=== PATIENT | female | born 1965 | race American Indian/Alaskan Native ===

== ENCOUNTER 2020-05-19 16:16 | Inpatient (IN) | payer MEDICARE, MEDICAID ==
[2020-05-19] MEDS ORDERED: Sodium Chloride 0.9% 2.5 ML Syringe FLUSH PRN (16:33)
[2020-05-19] MEDS ORDERED: Sodium Chloride 0.9% 10 ML Syringe FLUSH PRN (16:33)
--- NOTE | 2020-05-19 16:37 | EDM.PDOC ---
ED HPI GENERAL MEDICAL PROBLEM - General Chief Complaint: Lower Extremity Injury/Pain Stated Complaint: PAIN IN LEGS Time Seen by Provider: 05/19/20 16:20 Source of Information: Reports: Patient - History of Present Illness INITIAL COMMENTS - FREE TEXT/NARRATIVE: History of present illness: 54-year-old female presenting with left calf pain since this morning. Has had some chronic swelling in the right lower extremity ever after a surgery for a fractured bone. However having some pain and swelling in the left lower extremity and pain with any weightbearing or movement of the leg and dorsiflexion and plantar flexion cause worsening of pain as well. Apparently she called [facility] and they told her they did not have an ultrasound and told her to come here instead. She was concerned she might have a blood clot. She does have a kitten and she has multiple superficial cuts all over both legs but none of them appear infected. She has not had any difficulty breathing or chest pain. She has not had blood clot in the past. Review of systems: As per history of present illness and below otherwise all systems reviewed and negative. Past medical history: As per history of present illness and as reviewed below otherwise noncontributory. CHF, hypertension, diabetes Surgical history: As per history of present illness and as reviewed below otherwise noncontributory. Tubal ligation, tonsillectomy, gastric bypass, toe amputation on the right, right lower extremity fracture repair Social history: No reported history of drug or alcohol abuse. Former smoker now quit Family history: As per history of present illness and as reviewed below otherwise noncontributory. Physical exam: GEN: no acute distress, chronically ill appearing HEENT: Atraumatic, normocephalic, mucous membranes slightly dry Neck: supple, nontender, trachea midline. Lungs: No respiratory distress. Heart: RRR Abdomen: Soft, nondistended, nontender. Back: nontender Extremities: Left calf tenderness, appears slightly enlarged compared to right although patient reports usually the right side is larger due to chronic swelling from remote surgery and injury. Distally neurovascularly intact. Right foot with healing ulcer with dark scab/eschar without significant surrounding erythema. Left foot has early ulcer formation with surrounding erythema concern for acute infection Neuro: Awake, alert, oriented. Neuro Exam nonfocal. Skin: warm, dry, no lesions ulceration, erythema surrounding infected diabetic foot ulcers 1 on right and 1 on left Diagnostics: Labs, left lower extremity ultrasound Therapeutics: [] MDM: Impression: [] Plan: [] Definitive disposition and diagnosis as appropriate pending reevaluation and review of above. left knee to left ankle Pain Score (Numeric/FACES): 6 - Related Data Allergies Allergy/AdvReac Type Severity Reaction Status Date / Time Penicillins Allergy Airway Verified 05/19/20 22:22 Tightness Home Meds: Home Meds Albuterol [Ventolin HFA] 1 - 2 puff INH ASDIRECTED PRN 10/02/15 [History] Cyclobenzaprine [Flexeril] 1 tab PO BEDTIME 10/02/15 [History] Furosemide 60 mg PO DAILY 10/02/15 [History] Gabapentin [Neurontin] 600 mg PO BID 10/02/15 [History] Lisinopril 40 mg PO DAILY 10/02/15 [History] Omeprazole [Prilosec] 40 mg PO BID 10/02/15 [History] Potassium Chloride 2 tab PO TID 10/02/15 [History] amLODIPine Besylate [Amlodipine Besylate] 10 mg PO ACBREAKFAST 10/02/15 [History] buPROPion HCL [Wellbutrin Xl] 1 tab PO BID 10/02/15 [History] rOPINIRole HCl [Requip] 0.5 mg PO BEDTIME 10/02/15 [History] traMADol HCl [Tramadol HCl] 2 tab PO Q8H PRN 10/02/15 [History] Cholecalciferol (Vitamin D3) [Vitamin D3] 50,000 unit PO ASDIRECTED 05/06/17 [History] Fluticasone Propionate [Flovent Hfa] 1 puff INH BID 05/06/17 [History] Metoprolol Succinate 12.5 mg PO BID 05/06/17 [History] atorvaSTATin Calcium [Atorvastatin Calcium] 20 mg PO DAILY 05/06/17 [History] Past Medical History Other HEENT History: wears glasses, has upper and lower dentures Cardiovascular History: Reports: Heart Failure, High Cholesterol, Hypertension Other Cardiovascular History: History CHF '2007, PVD sec to diabetes Respiratory History: Reports: Asthma, COPD Other Respiratory History: 30+ year history of smoking, History reaction to environmental allergies triggering asthma Gastrointestinal History: Reports: GERD Other Gastrointestinal History: Heartburn/GERD reports currently managed with medication Other Genitourinary History: renal insufficiency Musculoskeletal History: Reports: Arthritis, Back Pain, Chronic, Fracture, Fibromyalgia Other Musculoskeletal History: HX: fracturing Left wrist and right tibia Neurological History: Reports: Neuropathy, Peripheral, Other (See Below) Other Neuro History: hx of restless leg syndrome, hx of left leg sciatica Psychiatric History: Reports: Depression Endocrine/Metabolic History: Reports: Diabetes, Type II, Obesity/BMI 30+ Dermatologic History: Reports: Cellulitis Other Dermatologic History: Right Foot - Infectious Disease History Infectious Disease History: Reports: None - Past Surgical History HEENT Surgical History: Reports: Tonsillectomy Female Surgical History: Reports: Breast Biopsy, Tubal Ligation Musculoskeletal Surgical History: Reports: Other (See Below) Other Musculoskeletal Surgeries/Procedures:: amputation of right great toe 10/23 Social & Family History - Family History Family Medical History: Noncontributory - Caffeine Use Caffeine Use: Reports: Coffee, Soda Review of Systems - Review of Systems Review Of Systems: See Below (See HPI) ED EXAM, GENERAL - Physical Exam Exam: See Below (See HPI) Course - Vital Signs Last Recorded V/S: Last Vital Signs Temp 99.8 F 05/20/20 16:00 Pulse 73 05/20/20 16:00 Resp 15 05/20/20 16:00 BP 152/80 H 05/20/20 16:00 Pulse Ox 99 05/20/20 16:00 - Orders/Labs/Meds Orders: Medication Orders Acetaminophen (Tylenol) 650 mg PO Q4H PRN PRN Reason: Pain (Mild 1-3)/fever Heparin Sodium (Porcine) (Heparin Sodium) 5,000 units SUBCUT Q12H [facility] Last Admin: 05/20/20 11:33 Dose: 5,000 units Documented by: Admin: 05/19/20 23:02 Dose: 5,000 units Documented by: DARA Sodium Chloride (Normal Saline) 1,000 mls @ 75 mls/hr IV ASDIRECTED [facility] Last Admin: 05/19/20 22:56 Dose: 125 mls/hr Documented by: DARA Cefepime HCl 1 gm/ Premix 50 mls @ 100 mls/hr IV Q12H [facility] Last Admin: 05/20/20 11:35 Dose: 100 mls/hr Documented by: PROFLUC Insulin Aspart (Novolog) 0 unit SUBCUT TIDAC [facility]; Protocol Last Admin: 05/20/20 18:33 Dose: Not Given Documented by: PROFLUC Oxycodone HCl (Oxycodone) 5 mg PO Q4H PRN PRN Reason: Pain (moderate 4-6) Last Admin: 05/20/20 19:14 Dose: 5 mg Documented by: Admin: 05/19/20 22:57 Dose: 5 mg Documented by: DARA Sodium Chloride (Saline Flush) 10 ml FLUSH ASDIRECTED PRN PRN Reason: Keep Vein Open Last Admin: 05/19/20 16:48 Dose: 10 ml Documented by: RAJENDRA Sodium Chloride (Saline Flush) 2.5 ml FLUSH ASDIRECTED PRN PRN Reason: Keep Vein Open Last Admin: 05/19/20 16:48 Dose: 2.5 ml Documented by: RAJENDRA Vancomycin HCl (Pharmacy To Dose - Vancomycin) 1 dose .XX ASDIRECTED [facility] Labs: Laboratory Tests 05/19/20 05/19/20 05/19/20 Range/Units 16:46 16:46 16:46 WBC 16.87 H (4.0-11.0) K/uL RBC 3.69 L (4.30-5.90) M/uL Hgb 11.2 L (12.0-16.0) g/dL Hct 34.0 L (36.0-46.0) % MCV 92.1 (80.0-98.0) fL MCH 30.4 (27.0-32.0) pg MCHC 32.9 (31.0-37.0) g/dL RDW Std Deviation 39.3 (28.0-62.0) fl RDW Coeff of Lorraine 12 (11.0-15.0) % Plt Count 162 (150-400) K/uL MPV 9.60 (7.40-12.00) fL Neut % (Auto) 86.4 H (48.0-80.0) % Lymph % (Auto) 5.5 L (16.0-40.0) % George % (Auto) 6.2 (0.0-15.0) % Eos % (Auto) 1.7 (0.0-7.0) % Baso % (Auto) 0.2 (0.0-1.5) % Neut # (Auto) 14.6 H (1.4-5.7) K/uL Lymph # (Auto) 0.9 (0.6-2.4) K/uL George # (Auto) 1.1 H (0.0-0.8) K/uL Eos # (Auto) 0.3 (0.0-0.7) K/uL Baso # (Auto) 0.0 (0.0-0.1) K/uL INR 1.07 Sodium 137 (136-145) mmol/L Potassium 4.4 (3.5-5.1) mmol/L Chloride 102 (98-107) mmol/L Carbon Dioxide 25.1 (21.0-32.0) mmol/L BUN 36 H (7.0-18.0) mg/dL Creatinine 3.2 H (0.6-1.0) mg/dL Est Cr Clr Drug Dosing 19.32 mL/min Estimated GFR (MDRD) 15.0 ml/min Glucose 113 H (74-106) mg/dL Calcium 7.9 L (8.5-10.1) mg/dL Total Bilirubin 0.4 (0.2-1.0) mg/dL AST 17 (15-37) IU/L ALT 23 (14-63) IU/L Alkaline Phosphatase 153 H (46-116) U/L B-Natriuretic Peptide (<100) PG/ML Total Protein 7.7 (6.4-8.2) g/dL Albumin 3.2 L (3.4-5.0) g/dL Globulin 4.5 H (2.6-4.0) g/dL Albumin/Globulin Ratio 0.7 L (0.9-1.6) 05/19/20 Range/Units 16:46 WBC (4.0-11.0) K/uL RBC (4.30-5.90) M/uL Hgb (12.0-16.0) g/dL Hct (36.0-46.0) % MCV (80.0-98.0) fL MCH (27.0-32.0) pg MCHC (31.0-37.0) g/dL RDW Std Deviation (28.0-62.0) fl RDW Coeff of Lorraine (11.0-15.0) % Plt Count (150-400) K/uL MPV (7.40-12.00) fL Neut % (Auto) (48.0-80.0) % Lymph % (Auto) (16.0-40.0) % George % (Auto) (0.0-15.0) % Eos % (Auto) (0.0-7.0) % Baso % (Auto) (0.0-1.5) % Neut # (Auto) (1.4-5.7) K/uL Lymph # (Auto) (0.6-2.4) K/uL George # (Auto) (0.0-0.8) K/uL Eos # (Auto) (0.0-0.7) K/uL Baso # (Auto) (0.0-0.1) K/uL INR Sodium (136-145) mmol/L Potassium (3.5-5.1) mmol/L Chloride (98-107) mmol/L Carbon Dioxide (21.0-32.0) mmol/L BUN (7.0-18.0) mg/dL Creatinine (0.6-1.0) mg/dL Est Cr Clr Drug Dosing mL/min Estimated GFR (MDRD) ml/min Glucose (74-106) mg/dL Calcium (8.5-10.1) mg/dL Total Bilirubin (0.2-1.0) mg/dL AST (15-37) IU/L ALT (14-63) IU/L Alkaline Phosphatase (46-116) U/L B-Natriuretic Peptide 751 H (<100) PG/ML Total Protein (6.4-8.2) g/dL Albumin (3.4-5.0) g/dL Globulin (2.6-4.0) g/dL Albumin/Globulin Ratio (0.9-1.6) Meds: Medications Generic Name Dose Route Start Last Admin Trade Name Freq PRN Reason Stop Dose Admin Acetaminophen 650 mg 05/19/20 22:29 Tylenol PO Q4H PRN Pain (Mild 1-3)/fever Heparin Sodium (Porcine) 5,000 units 05/19/20 23:00 05/20/20 11:33 Heparin Sodium SUBCUT 5,000 units Q12H [facility] Administration Sodium Chloride 1,000 mls @ 75 mls/hr 05/19/20 22:45 05/19/20 22:56 Normal Saline IV 125 mls/hr ASDIRECTED [facility] Administration Cefepime HCl 1 gm/ Premix 50 mls @ 100 mls/hr 05/20/20 11:30 05/20/20 11:35 IV 100 mls/hr Q12H [facility] Administration Insulin Aspart 0 unit 05/20/20 17:00 05/20/20 18:33 Novolog SUBCUT Not Given TIDAC [facility] Protocol Oxycodone HCl 5 mg 05/19/20 22:29 05/20/20 19:14 Oxycodone PO 5 mg Q4H PRN Administration Pain (moderate 4-6) Sodium Chloride 10 ml 05/19/20 16:33 05/19/20 16:48 Saline Flush FLUSH 10 ml ASDIRECTED PRN Administration Keep Vein Open Sodium Chloride 2.5 ml 05/19/20 16:33 05/19/20 16:48 Saline Flush FLUSH 2.5 ml ASDIRECTED PRN Administration Keep Vein Open Vancomycin HCl 1 dose 05/19/20 22:30 Pharmacy To Dose - Vancomycin .XX ASDIRECTED [facility] Discontinued Medications Generic Name Dose Route Start Last Admin Trade Name Freq PRN Reason Stop Dose Admin Cephalexin 1,000 mg 05/19/20 19:34 05/19/20 20:04 Keflex PO 05/19/20 19:35 Not Given ONETIME ONE Piperacillin Sod/Tazobactam 50 mls @ 100 mls/hr 05/19/20 19:43 05/20/20 02:16 Sod 3.375 gm/ Sodium Chloride IV 05/19/20 20:12 Not Given ONETIME ONE Vancomycin HCl 1 gm/ Sodium 250 mls @ 166 mls/hr 05/19/20 19:43 05/19/20 20:04 Chloride IV 05/19/20 21:13 166 mls/hr ONETIME ONE Administration Cefepime HCl 2 gm/ Premix 50 mls @ 100 mls/hr 05/19/20 19:48 05/20/20 02:14 IV 05/19/20 20:17 Not Given ONETIME ONE Cefepime HCl 1 gm/ Premix 50 mls @ 100 mls/hr 05/20/20 04:00 IV Q8H [facility] Vancomycin HCl Confirm 05/19/20 19:50 05/19/20 22:49 Vancocin Administered 05/19/20 19:51 Not Given Dose 1 gm .ROUTE .[facility] ONE - Re-Assessments/Exams Free Text/Narrative Re-Assessment/Exam: 05/19/20 19:40 I reassessed the patient. She is resting comfortably and in no acute distress. I discussed the abnormal lab findings and ultrasound findings with the patient. No DVT seen, however the patient does have a creatinine of 3.2 with no prior creatinine available for comparison and a white blood cell count of 16 as well as an inguinal lymph node in the left groin. I discussed all the above with the patient. She does report she thinks she has an infection in her right foot for which she has been seeing the manager placement, on examination this appears to have a crusted eschar over the hallux amputation site and is nontender without any surrounding erythema or drainage. We discussed the left leg swelling and lymph node and she reports she was wondering if she may be developing an infection in her left foot as well. On examination she does have some erythema in the development of a superficial ulcer of the left foot and erythema over the plantar and medial surfaces of the foot. She reports she has no sensation in the feet due to her neuropathy. She has not had any fevers. She was previously told that she had some renal insufficiency but she is not sure what stage or what her baseline creatinine is. Therefore I recommended to the patient that she get admitted. She is in agreement with this. Departure - Departure Time of Disposition: 19:55 Disposition: Admitted As Inpatient 65 Clinical Impression: Diabetic foot infection, Acute renal insufficiency - Discharge Information Sepsis Event Note (ED) - Evaluation Sepsis Screening Result: No Definite Risk
[2020-05-19 17:17] LABS: CARBON DIOXIDE,CO2 25.1 mmol/L (21.0-32.0); POTASSIUM,K 4.4 mmol/L (3.5-5.1)
--- NOTE | 2020-05-19 18:11 | US ---
INDICATION: Left calf pain TECHNIQUE: Ultrasound venous duplex left lower extremity. Mallory-scale, color Doppler, and spectral Doppler imaging were performed with compression and augmentation. COMPARISON: None FINDINGS: Deep veins: The left common femoral, femoral, popliteal, and visualized calf veins are fully compressible, demonstrate normal color flow, and normal response to mechanical augmentation. The Duplex Doppler waveforms are normal in appearance. Superficial veins: The visualized greater saphenous and superficial veins of the leg and calf are unremarkable. Soft tissue: No masses or cysts are identified. Several lymph nodes are present in the left inguinal region measuring up to 1 cm in maximal short axis. IMPRESSIONS: 1. No sonographic evidence of acute deep venous thrombosis seen. 2. Left inguinal adenopathy is noted and clinical follow-up is advised. Dictated by Anish Whittaker MD @ 05/19/2020 6:09:33 PM Dictated by: Anish Whittaker MD @ 05/19/2020 18:09:40 (Electronically Signed)
[2020-05-19] MEDS ORDERED: Cephalexin 500 MG Cap PO ONE (19:34)
[2020-05-19] MEDS ORDERED: Piperacillin/Tazobactam 3.375 GM in Sodium Chloride 0.9% 50 ML IV ONE (19:43)
[2020-05-19] MEDS ORDERED: Cefepime 2 GM in Premix Bag 1 BAG IV ONE (19:48)
[2020-05-19] MEDS: Vancomycin 1 GM AdvVial ONE ×2 (20:04→22:49)
--- NOTE | 2020-05-19 21:58 | CR ---
INDICATION: Osteomyelitis TECHNIQUE: Three views left foot. FINDINGS: Small sensory navicular bone. Tiny lucency involving the distal tuft of the left great toe. No definitive cortical destruction or erosion in the left foot to definitively suggest osteomyelitis. Apparent soft tissue swelling involving the left 2nd through 4th toes. If concern for osteomyelitis persists consider correlation with MRI of the foot which is the most sensitive test. Small amount of lucency along the base of the left 1st distal phalanx and involving the base of the left 4th proximal phalanx nonspecific. Mild calcaneal spurring. Remainder negative. Dictated by Jarrod Roberts MD @ May 19 2020 9:55PM Signed by Dr. Jarrod Roberts @ May 19 2020 9:55PM
--- NOTE | 2020-05-19 22:37 | PCM.HP.2 ---
H&P History of Present Illness - General Date of Service: 05/19/20 Admit Problem/Dx: Admission Diagnosis/Problem Admission Diagnosis/Problem Diabetic foot - History of Present Illness Initial Comments - Free Text/Narative: 54 yo female with pmh of DM, HTN, diabetic nephropathy and right big toe amputation who presents with one day history of erythema and pain of the left foot. Patient was seen in the ED and had ultrasound of leg was negative for DVT. Since weight loss surgery last year patient has not required insulin. left knee to left ankle Pain Score (Numeric/FACES): 6 - Related Data Allergies/Adverse Reactions: Allergies Allergy/AdvReac Type Severity Reaction Status Date / Time Penicillins Allergy Airway Verified 05/19/20 22:22 Tightness Home Medications: Home Meds Albuterol [Ventolin HFA] 1 - 2 puff INH ASDIRECTED PRN 10/02/15 [History] Cyclobenzaprine [Flexeril] 1 tab PO BEDTIME 10/02/15 [History] Furosemide 60 mg PO DAILY 10/02/15 [History] Gabapentin [Neurontin] 600 mg PO BID 10/02/15 [History] Lisinopril 40 mg PO DAILY 10/02/15 [History] Omeprazole [Prilosec] 40 mg PO BID 10/02/15 [History] Potassium Chloride 2 tab PO TID 10/02/15 [History] amLODIPine Besylate [Amlodipine Besylate] 10 mg PO ACBREAKFAST 10/02/15 [History] buPROPion HCL [Wellbutrin Xl] 1 tab PO BID 10/02/15 [History] rOPINIRole HCl [Requip] 0.5 mg PO BEDTIME 10/02/15 [History] traMADol HCl [Tramadol HCl] 2 tab PO Q8H PRN 10/02/15 [History] Cholecalciferol (Vitamin D3) [Vitamin D3] 50,000 unit PO ASDIRECTED 05/06/17 [History] Fluticasone Propionate [Flovent Hfa] 1 puff INH BID 05/06/17 [History] Metoprolol Succinate 12.5 mg PO BID 05/06/17 [History] atorvaSTATin Calcium [Atorvastatin Calcium] 20 mg PO DAILY 05/06/17 [History] Past Medical History Other HEENT History: wears glasses, has upper and lower dentures Cardiovascular History: Reports: Heart Failure, High Cholesterol, Hypertension Other Cardiovascular History: History CHF '2007, PVD sec to diabetes Respiratory History: Reports: Asthma, COPD Other Respiratory History: 30+ year history of smoking, History reaction to environmental allergies triggering asthma Gastrointestinal History: Reports: GERD Other Gastrointestinal History: Heartburn/GERD reports currently managed with medication Other Genitourinary History: renal insufficiency Musculoskeletal History: Reports: Arthritis, Back Pain, Chronic, Fracture, Fibromyalgia Other Musculoskeletal History: HX: fracturing Left wrist and right tibia Neurological History: Reports: Neuropathy, Peripheral, Other (See Below) Other Neuro History: hx of restless leg syndrome, hx of left leg sciatica Psychiatric History: Reports: Depression Endocrine/Metabolic History: Reports: Diabetes, Type II, Obesity/BMI 30+ Dermatologic History: Reports: Cellulitis Other Dermatologic History: Right Foot - Infectious Disease History Infectious Disease History: Reports: None - Past Surgical History HEENT Surgical History: Reports: Tonsillectomy Female Surgical History: Reports: Breast Biopsy, Tubal Ligation Musculoskeletal Surgical History: Reports: Other (See Below) Other Musculoskeletal Surgeries/Procedures:: amputation of right great toe 10/23 Social & Family History - Family History Family Medical History: Noncontributory - Tobacco Use Smoking Status *Q: Former Smoker Years of Tobacco use: 35 Packs/Tins Daily: 1 Used Tobacco, but Quit: Yes Month/Year Tobacco Last Used: 10/08/2016 Second Hand Smoke Exposure: Yes - Caffeine Use Caffeine Use: Reports: Coffee, Energy Drinks, Soda, Tea - Recreational Drug Use Recreational Drug Use: No H&P Review of Systems - Review of Systems: Review Of Systems: Comprehensive ROS is negative, except as noted in HPI. Exam - Exam Exam: See Below - Vital Signs Vital Signs: Last Vital Signs Temp 35.8 C L 05/19/20 16:28 Pulse 71 05/19/20 16:28 Resp 16 05/19/20 16:28 BP 145/51 H 05/19/20 16:28 Pulse Ox 98 05/19/20 16:28 Weight: 90.129 kg - Exam General: Alert, Oriented HEENT: Mucosa Moist & [place] Lungs: Clear to Auscultation, Normal Respiratory Effort Cardiovascular: Regular Rate, Regular Rhythm GI/Abdominal Exam: Normal Bowel Sounds, Soft, Non-Tender Extremities: Non-Tender, No Pedal Edema, Other (erythema and mild swelling of the left toes extending half way up anterio foot, no ulcer noted) Skin: Warm, Dry, Intact Neurological: No: Focal Deficit - Patient Data Lab Results Last 24 hrs: Laboratory Results - last 24 hr 05/19/20 05/19/20 05/19/20 Range/Units 16:46 16:46 16:46 WBC 16.87 H (4.0-11.0) K/uL RBC 3.69 L (4.30-5.90) M/uL Hgb 11.2 L (12.0-16.0) g/dL Hct 34.0 L (36.0-46.0) % MCV 92.1 (80.0-98.0) fL MCH 30.4 (27.0-32.0) pg MCHC 32.9 (31.0-37.0) g/dL RDW Std Deviation 39.3 (28.0-62.0) fl RDW Coeff of [place]raine 12 (11.0-15.0) % Plt Count 162 (150-400) K/uL MPV 9.60 (7.40-12.00) fL Neut % (Auto) 86.4 H (48.0-80.0) % Lymph % (Auto) 5.5 L (16.0-40.0) % [place] % (Auto) 6.2 (0.0-15.0) % Eos % (Auto) 1.7 (0.0-7.0) % Baso % (Auto) 0.2 (0.0-1.5) % Neut # (Auto) 14.6 H (1.4-5.7) K/uL Lymph # (Auto) 0.9 (0.6-2.4) K/uL [place] # (Auto) 1.1 H (0.0-0.8) K/uL Eos # (Auto) 0.3 (0.0-0.7) K/uL Baso # (Auto) 0.0 (0.0-0.1) K/uL INR 1.07 Sodium 137 (136-145) mmol/L Potassium 4.4 (3.5-5.1) mmol/L Chloride 102 (98-107) mmol/L Carbon Dioxide 25.1 (21.0-32.0) mmol/L BUN 36 H (7.0-18.0) mg/dL Creatinine 3.2 H (0.6-1.0) mg/dL Est Cr Clr Drug Dosing 19.32 mL/min Estimated GFR (MDRD) 15.0 ml/min Glucose 113 H (74-106) mg/dL Calcium 7.9 L (8.5-10.1) mg/dL Total Bilirubin 0.4 (0.2-1.0) mg/dL AST 17 (15-37) IU/L ALT 23 (14-63) IU/L Alkaline Phosphatase 153 H (46-116) U/L B-Natriuretic Peptide (<100) PG/ML Total Protein 7.7 (6.4-8.2) g/dL Albumin 3.2 L (3.4-5.0) g/dL Globulin 4.5 H (2.6-4.0) g/dL Albumin/Globulin Ratio 0.7 L (0.9-1.6) SARS Virus RNA (PCR) (NEGATIVE) 05/19/20 05/19/20 Range/Units 16:46 20:00 WBC (4.0-11.0) K/uL RBC (4.30-5.90) M/uL Hgb (12.0-16.0) g/dL Hct (36.0-46.0) % MCV (80.0-98.0) fL MCH (27.0-32.0) pg MCHC (31.0-37.0) g/dL RDW Std Deviation (28.0-62.0) fl RDW Coeff of [place] (11.0-15.0) % Plt Count (150-400) K/uL MPV (7.40-12.00) fL Neut % (Auto) (48.0-80.0) % Lymph % (Auto) (16.0-40.0) % [place] % (Auto) (0.0-15.0) % Eos % (Auto) (0.0-7.0) % Baso % (Auto) (0.0-1.5) % Neut # (Auto) (1.4-5.7) K/uL Lymph # (Auto) (0.6-2.4) K/uL [place] # (Auto) (0.0-0.8) K/uL Eos # (Auto) (0.0-0.7) K/uL Baso # (Auto) (0.0-0.1) K/uL INR Sodium (136-145) mmol/L Potassium (3.5-5.1) mmol/L Chloride (98-107) mmol/L Carbon Dioxide (21.0-32.0) mmol/L BUN (7.0-18.0) mg/dL Creatinine (0.6-1.0) mg/dL Est Cr Clr Drug Dosing mL/min Estimated GFR (MDRD) ml/min Glucose (74-106) mg/dL Calcium (8.5-10.1) mg/dL Total Bilirubin (0.2-1.0) mg/dL AST (15-37) IU/L ALT (14-63) IU/L Alkaline Phosphatase (46-116) U/L B-Natriuretic Peptide 751 H (<100) PG/ML Total Protein (6.4-8.2) g/dL Albumin (3.4-5.0) g/dL Globulin (2.6-4.0) g/dL Albumin/Globulin Ratio (0.9-1.6) SARS Virus RNA (PCR) NEGATIVE (NEGATIVE) Result Diagrams: 05/23/20 05:42 05/23/20 05:42 Sepsis Event Note - Evaluation Sepsis Screening Result: No Definite Risk - Focused Exam Vital Signs: Vital Signs Temp Pulse Resp BP Pulse Ox 05/19/20 16:28 35.8 C L 71 16 145/51 H 98 Problem List Initiated/Reviewed/Updated: Yes Orders Last 24hrs: Active Orders 24 hr Category Date Time Status Patient Status [ADT] Routine ADT 05/19/20 19:56 Active Antiembolic Devices [RC] PER UNIT ROUTINE Care 05/19/20 22:30 Ordered Oxygen Therapy [RC] PRN Care 05/19/20 22:29 Ordered Up ad Danielle [RC] ASDIRECTED Care 05/19/20 22:29 Ordered VTE/DVT Education [RC] PER UNIT ROUTINE Care 05/19/20 22:29 Ordered Vital Signs [RC] Q4H Care 05/19/20 22:29 Ordered [place] [employer] Diet [DIET] Diet 05/19/20 Breakfast Ordered BASIC METABOLIC PANEL,BMP [CHEM] AM Lab 05/20/20 05:11 Ordered C-REACTIVE PROTEIN [CHEM] AM Lab 05/20/20 05:11 Ordered CBC WITH AUTO DIFF [HEME] AM Lab 05/20/20 05:11 Ordered SEDIMENTATION RATE AUTO [HEME] AM Lab 05/20/20 05:11 Ordered Acetaminophen [TylenoL] Med 05/19/20 22:29 Ordered 650 mg PO Q4H PRN Cefepime [Maxipime in D5W 1 GM/50 ML] 1 gm Med 05/20/20 04:00 Ordered Premix Bag 1 bag IV Q8H Heparin Sodium Med 05/19/20 22:45 Ordered 5,000 units SUBCUT Q12H Pharmacy to Dose - Vancomycin Med 05/19/20 22:30 Ordered 1 dose .XX ASDIRECTED Sodium Chloride 0.9% [Saline Flush] Med 05/19/20 16:33 Active 10 ml FLUSH ASDIRECTED PRN Sodium Chloride 0.9% [Saline Flush] Med 05/19/20 16:33 Active 2.5 ml FLUSH ASDIRECTED PRN oxyCODONE Med 05/19/20 22:29 Ordered 5 mg PO Q4H PRN Saline Lock Insert [OM.PC] Stat Oth 05/19/20 16:33 Ordered Sequential Compression Device [OM.PC] Per Unit Routine Oth 05/19/20 22:30 Ordered Resuscitation Status Routine Resus Stat 05/19/20 22:29 Ordered Medication Orders Acetaminophen (Tylenol) 650 mg PO Q4H PRN PRN Reason: Pain (Mild 1-3)/fever Heparin Sodium (Porcine) (Heparin Sodium) 5,000 units SUBCUT Q12H [facility] Cefepime HCl 1 gm/ Premix 50 mls @ 100 mls/hr IV Q8H [facility] Oxycodone HCl (Oxycodone) 5 mg PO Q4H PRN PRN Reason: Pain (moderate 4-6) Sodium Chloride (Saline Flush) 10 ml FLUSH ASDIRECTED PRN PRN Reason: Keep Vein Open Last Admin: 05/19/20 16:48 Dose: 10 ml Documented by: RAJENDRA Sodium Chloride (Saline Flush) 2.5 ml FLUSH ASDIRECTED PRN PRN Reason: Keep Vein Open Last Admin: 05/19/20 16:48 Dose: 2.5 ml Documented by: RAJENDRA Vancomycin HCl (Pharmacy To Dose - Vancomycin) 1 dose .XX ASDIRECTED [facility] Assessment/Plan Comment:: 54 yo female admitted for left foot cellulitis Left foot cellulitis: treat with vancomycin. Foot x-ray could not exclude osteomyelitis. Will check CRP and ESR. Cultures pending Kidney disease. Creatinine is 3.2, patient reports history of kidney disease but does not know the stage. Will continue to monitor and give IV fluids tonight. Check UA. Request records from [place].
[2020-05-19] MEDS: Sodium Chloride 0.9% 1,000 ML IV SCH (22:56)
[2020-05-19] MEDS: oxyCODONE 5 MG Tab PO PRN (22:57)
[2020-05-19] MEDS: Heparin Sodium 5,000 Units/ML Vial SUBCUT SCH (23:02)
[2020-05-20] MEDS ORDERED: Cefepime 1 GM in Premix Bag 1 BAG IV SCH (04:00)
[2020-05-20 06:48] LABS: CARBON DIOXIDE,CO2 21.3 mmol/L (21.0-32.0); POTASSIUM,K 4.2 mmol/L (3.5-5.1)
--- NOTE | 2020-05-20 11:00 | PCM.PN ---
- General Info Date of Service: 05/20/20 - Review of Systems Systems Review Comment:: reports no change in swelling and redness of foot - Patient Data Vitals - Most Recent: Last Vital Signs Temp 38.5 C H 05/20/20 07:55 Pulse 79 05/20/20 07:55 Resp 18 05/20/20 07:55 BP 144/69 H 05/20/20 07:55 Pulse Ox 95 05/20/20 07:55 Weight - Most Recent: 90.129 kg I&O - Last 24 Hours: Intake & Output 05/19/20 05/20/20 05/20/20 22:59 06:59 14:59 Intake Total 885 Output Total 300 Balance 585 Lab Results Last 24 Hours: Laboratory Results - last 24 hr 05/19/20 05/19/20 05/19/20 Range/Units 16:46 16:46 16:46 WBC 16.87 H (4.0-11.0) K/uL RBC 3.69 L (4.30-5.90) M/uL Hgb 11.2 L (12.0-16.0) g/dL Hct 34.0 L (36.0-46.0) % MCV 92.1 (80.0-98.0) fL MCH 30.4 (27.0-32.0) pg MCHC 32.9 (31.0-37.0) g/dL RDW Std Deviation 39.3 (28.0-62.0) fl RDW Coeff of [place]raine 12 (11.0-15.0) % Plt Count 162 (150-400) K/uL MPV 9.60 (7.40-12.00) fL Neut % (Auto) 86.4 H (48.0-80.0) % Lymph % (Auto) 5.5 L (16.0-40.0) % [place] % (Auto) 6.2 (0.0-15.0) % Eos % (Auto) 1.7 (0.0-7.0) % Baso % (Auto) 0.2 (0.0-1.5) % Neut # (Auto) 14.6 H (1.4-5.7) K/uL Lymph # (Auto) 0.9 (0.6-2.4) K/uL [place] # (Auto) 1.1 H (0.0-0.8) K/uL Eos # (Auto) 0.3 (0.0-0.7) K/uL Baso # (Auto) 0.0 (0.0-0.1) K/uL ESR (0-29) mm/hr INR 1.07 Sodium 137 (136-145) mmol/L Potassium 4.4 (3.5-5.1) mmol/L Chloride 102 (98-107) mmol/L Carbon Dioxide 25.1 (21.0-32.0) mmol/L BUN 36 H (7.0-18.0) mg/dL Creatinine 3.2 H (0.6-1.0) mg/dL Est Cr Clr Drug Dosing 19.32 mL/min Estimated GFR (MDRD) 15.0 ml/min Glucose 113 H (74-106) mg/dL POC Glucose (60-110) mg/dL Calcium 7.9 L (8.5-10.1) mg/dL Total Bilirubin 0.4 (0.2-1.0) mg/dL AST 17 (15-37) IU/L ALT 23 (14-63) IU/L Alkaline Phosphatase 153 H (46-116) U/L C-Reactive Protein (0.00-0.90) mg/dL B-Natriuretic Peptide (<100) PG/ML Total Protein 7.7 (6.4-8.2) g/dL Albumin 3.2 L (3.4-5.0) g/dL Globulin 4.5 H (2.6-4.0) g/dL Albumin/Globulin Ratio 0.7 L (0.9-1.6) Urine Color Urine Appearance Urine pH (5.0-8.0) Ur Specific [place] (1.001-1.035) Urine Protein (NEGATIVE) mg/dL Urine Glucose (UA) (NEGATIVE) mg/dL Urine Ketones (NEGATIVE) mg/dL Urine Occult Blood (NEGATIVE) Urine Nitrite (NEGATIVE) Urine Bilirubin (NEGATIVE) Urine Urobilinogen (<2.0) EU/dL Ur Leukocyte Esterase (NEGATIVE) Urine RBC (0-2/HPF) Urine WBC (0-5/HPF) Ur Epithelial Cells (NONE-FEW) Urine Bacteria (NEGATIVE) Ur Random Creatinine mg/dL SARS Virus RNA (PCR) (NEGATIVE) 05/19/20 05/19/20 05/19/20 Range/Units 16:46 20:00 23:00 WBC (4.0-11.0) K/uL RBC (4.30-5.90) M/uL Hgb (12.0-16.0) g/dL Hct (36.0-46.0) % MCV (80.0-98.0) fL MCH (27.0-32.0) pg MCHC (31.0-37.0) g/dL RDW Std Deviation (28.0-62.0) fl RDW Coeff of [place]raine (11.0-15.0) % Plt Count (150-400) K/uL MPV (7.40-12.00) fL Neut % (Auto) (48.0-80.0) % Lymph % (Auto) (16.0-40.0) % [place] % (Auto) (0.0-15.0) % Eos % (Auto) (0.0-7.0) % Baso % (Auto) (0.0-1.5) % Neut # (Auto) (1.4-5.7) K/uL Lymph # (Auto) (0.6-2.4) K/uL [place] # (Auto) (0.0-0.8) K/uL Eos # (Auto) (0.0-0.7) K/uL Baso # (Auto) (0.0-0.1) K/uL ESR (0-29) mm/hr INR Sodium (136-145) mmol/L Potassium (3.5-5.1) mmol/L Chloride (98-107) mmol/L Carbon Dioxide (21.0-32.0) mmol/L BUN (7.0-18.0) mg/dL Creatinine (0.6-1.0) mg/dL Est Cr Clr Drug Dosing mL/min Estimated GFR (MDRD) ml/min Glucose (74-106) mg/dL POC Glucose (60-110) mg/dL Calcium (8.5-10.1) mg/dL Total Bilirubin (0.2-1.0) mg/dL AST (15-37) IU/L ALT (14-63) IU/L Alkaline Phosphatase (46-116) U/L C-Reactive Protein (0.00-0.90) mg/dL B-Natriuretic Peptide 751 H (<100) PG/ML Total Protein (6.4-8.2) g/dL Albumin (3.4-5.0) g/dL Globulin (2.6-4.0) g/dL Albumin/Globulin Ratio (0.9-1.6) Urine Color YELLOW Urine Appearance CLEAR Urine pH 6.0 (5.0-8.0) Ur Specific [place] 1.020 (1.001-1.035) Urine Protein 100 H (NEGATIVE) mg/dL Urine Glucose (UA) NEGATIVE (NEGATIVE) mg/dL Urine Ketones NEGATIVE (NEGATIVE) mg/dL Urine Occult Blood SMALL H (NEGATIVE) Urine Nitrite NEGATIVE (NEGATIVE) Urine Bilirubin NEGATIVE (NEGATIVE) Urine Urobilinogen 0.2 (<2.0) EU/dL Ur Leukocyte Esterase NEGATIVE (NEGATIVE) Urine RBC 0-2 (0-2/HPF) Urine WBC 0-1 (0-5/HPF) Ur Epithelial Cells RARE (NONE-FEW) Urine Bacteria RARE (NEGATIVE) Ur Random Creatinine mg/dL SARS Virus RNA (PCR) NEGATIVE (NEGATIVE) 05/19/20 05/20/20 05/20/20 Range/Units 23:00 05:58 05:58 WBC 15.32 H (4.0-11.0) K/uL RBC 3.06 L (4.30-5.90) M/uL Hgb 9.3 L (12.0-16.0) g/dL Hct 28.3 L (36.0-46.0) % MCV 92.5 (80.0-98.0) fL MCH 30.4 (27.0-32.0) pg MCHC 32.9 (31.0-37.0) g/dL RDW Std Deviation 38.3 (28.0-62.0) fl RDW Coeff of [place]raine 12 (11.0-15.0) % Plt Count 140 L (150-400) K/uL MPV 9.90 (7.40-12.00) fL Neut % (Auto) 75.1 (48.0-80.0) % Lymph % (Auto) 13.5 L (16.0-40.0) % [place] % (Auto) 9.4 (0.0-15.0) % Eos % (Auto) 1.6 (0.0-7.0) % Baso % (Auto) 0.4 (0.0-1.5) % Neut # (Auto) 11.5 H (1.4-5.7) K/uL Lymph # (Auto) 2.1 (0.6-2.4) K/uL [place] # (Auto) 1.4 H (0.0-0.8) K/uL Eos # (Auto) 0.3 (0.0-0.7) K/uL Baso # (Auto) 0.1 (0.0-0.1) K/uL ESR 55 H (0-29) mm/hr INR Sodium (136-145) mmol/L Potassium (3.5-5.1) mmol/L Chloride (98-107) mmol/L Carbon Dioxide (21.0-32.0) mmol/L BUN (7.0-18.0) mg/dL Creatinine (0.6-1.0) mg/dL Est Cr Clr Drug Dosing mL/min Estimated GFR (MDRD) ml/min Glucose (74-106) mg/dL POC Glucose (60-110) mg/dL Calcium (8.5-10.1) mg/dL Total Bilirubin (0.2-1.0) mg/dL AST (15-37) IU/L ALT (14-63) IU/L Alkaline Phosphatase (46-116) U/L C-Reactive Protein (0.00-0.90) mg/dL B-Natriuretic Peptide (<100) PG/ML Total Protein (6.4-8.2) g/dL Albumin (3.4-5.0) g/dL Globulin (2.6-4.0) g/dL Albumin/Globulin Ratio (0.9-1.6) Urine Color Urine Appearance Urine pH (5.0-8.0) Ur Specific [place] (1.001-1.035) Urine Protein (NEGATIVE) mg/dL Urine Glucose (UA) (NEGATIVE) mg/dL Urine Ketones (NEGATIVE) mg/dL Urine Occult Blood (NEGATIVE) Urine Nitrite (NEGATIVE) Urine Bilirubin (NEGATIVE) Urine Urobilinogen (<2.0) EU/dL Ur Leukocyte Esterase (NEGATIVE) Urine RBC (0-2/HPF) Urine WBC (0-5/HPF) Ur Epithelial Cells (NONE-FEW) Urine Bacteria (NEGATIVE) Ur Random Creatinine 45.4 mg/dL SARS Virus RNA (PCR) (NEGATIVE) 05/20/20 05/20/20 Range/Units 05:58 06:45 WBC (4.0-11.0) K/uL RBC (4.30-5.90) M/uL Hgb (12.0-16.0) g/dL Hct (36.0-46.0) % MCV (80.0-98.0) fL MCH (27.0-32.0) pg MCHC (31.0-37.0) g/dL RDW Std Deviation (28.0-62.0) fl RDW Coeff of [place] (11.0-15.0) % Plt Count (150-400) K/uL MPV (7.40-12.00) fL Neut % (Auto) (48.0-80.0) % Lymph % (Auto) (16.0-40.0) % [place] % (Auto) (0.0-15.0) % Eos % (Auto) (0.0-7.0) % Baso % (Auto) (0.0-1.5) % Neut # (Auto) (1.4-5.7) K/uL Lymph # (Auto) (0.6-2.4) K/uL [place] # (Auto) (0.0-0.8) K/uL Eos # (Auto) (0.0-0.7) K/uL Baso # (Auto) (0.0-0.1) K/uL ESR (0-29) mm/hr INR Sodium 138 (136-145) mmol/L Potassium 4.2 (3.5-5.1) mmol/L Chloride 106 (98-107) mmol/L Carbon Dioxide 21.3 (21.0-32.0) mmol/L BUN 37 H (7.0-18.0) mg/dL Creatinine 3.3 H (0.6-1.0) mg/dL Est Cr Clr Drug Dosing 20.13 mL/min Estimated GFR (MDRD) 14.5 ml/min Glucose 70 L (74-106) mg/dL POC Glucose 66 (60-110) mg/dL Calcium 7.5 L (8.5-10.1) mg/dL Total Bilirubin (0.2-1.0) mg/dL AST (15-37) IU/L ALT (14-63) IU/L Alkaline Phosphatase (46-116) U/L C-Reactive Protein 19.40 H (0.00-0.90) mg/dL B-Natriuretic Peptide (<100) PG/ML Total Protein (6.4-8.2) g/dL Albumin (3.4-5.0) g/dL Globulin (2.6-4.0) g/dL Albumin/Globulin Ratio (0.9-1.6) Urine Color Urine Appearance Urine pH (5.0-8.0) Ur Specific [place] (1.001-1.035) Urine Protein (NEGATIVE) mg/dL Urine Glucose (UA) (NEGATIVE) mg/dL Urine Ketones (NEGATIVE) mg/dL Urine Occult Blood (NEGATIVE) Urine Nitrite (NEGATIVE) Urine Bilirubin (NEGATIVE) Urine Urobilinogen (<2.0) EU/dL Ur Leukocyte Esterase (NEGATIVE) Urine RBC (0-2/HPF) Urine WBC (0-5/HPF) Ur Epithelial Cells (NONE-FEW) Urine Bacteria (NEGATIVE) Ur Random Creatinine mg/dL SARS Virus RNA (PCR) (NEGATIVE) Med Orders - Current: Current Medications Acetaminophen (Tylenol) 650 mg PO Q4H PRN PRN Reason: Pain (Mild 1-3)/fever Heparin Sodium (Porcine) (Heparin Sodium) 5,000 units SUBCUT Q12H [facility] Last Admin: 05/19/20 23:02 Dose: 5,000 units Documented by: Sodium Chloride (Normal Saline) 1,000 mls @ 75 mls/hr IV ASDIRECTED [facility] Last Admin: 05/19/20 22:56 Dose: 125 mls/hr Documented by: Cefepime HCl 1 gm/ Premix 50 mls @ 100 mls/hr IV Q8H [facility] Oxycodone HCl (Oxycodone) 5 mg PO Q4H PRN PRN Reason: Pain (moderate 4-6) Last Admin: 05/19/20 22:57 Dose: 5 mg Documented by: Sodium Chloride (Saline Flush) 10 ml FLUSH ASDIRECTED PRN PRN Reason: Keep Vein Open Last Admin: 05/19/20 16:48 Dose: 10 ml Documented by: Sodium Chloride (Saline Flush) 2.5 ml FLUSH ASDIRECTED PRN PRN Reason: Keep Vein Open Last Admin: 05/19/20 16:48 Dose: 2.5 ml Documented by: Vancomycin HCl (Pharmacy To Dose - Vancomycin) 1 dose .XX ASDIRECTED [facility] Discontinued Medications Cephalexin (Keflex) 1,000 mg PO ONETIME ONE Stop: 05/19/20 19:35 Last Admin: 05/19/20 20:04 Dose: Not Given Documented by: Piperacillin Sod/Tazobactam (Sod 3.375 gm/ Sodium Chloride) 50 mls @ 100 mls/hr IV ONETIME ONE Stop: 05/19/20 20:12 Last Admin: 05/20/20 02:16 Dose: Not Given Documented by: Vancomycin HCl 1 gm/ Sodium (Chloride) 250 mls @ 166 mls/hr IV ONETIME ONE Stop: 05/19/20 21:13 Last Admin: 05/19/20 20:04 Dose: 166 mls/hr Documented by: Cefepime HCl 2 gm/ Premix 50 mls @ 100 mls/hr IV ONETIME ONE Stop: 05/19/20 20:17 Last Admin: 05/20/20 02:14 Dose: Not Given Documented by: Cefepime HCl 1 gm/ Premix 50 mls @ 100 mls/hr IV Q8H [facility] Vancomycin HCl (Vancocin) Confirm Administered Dose 1 gm .ROUTE .STK-MED ONE Stop: 05/19/20 19:51 Last Admin: 05/19/20 22:49 Dose: Not Given Documented by: - Exam General: Alert, Moderate Distress Neck: Supple Lungs: Clear to Auscultation, Normal Respiratory Effort Cardiovascular: Regular Rate, Regular Rhythm GI/Abdominal Exam: Soft, Non-Tender, No Distention Extremities: Non-Tender, No Pedal Edema Skin: Rash (minimal change in erythema of right foot) Sepsis Event Note - Evaluation Sepsis Screening Result: No Definite Risk - Focused Exam Vital Signs: Vital Signs Temp Pulse Resp BP Pulse Ox 05/20/20 07:55 38.5 C H 79 18 144/69 H 95 05/20/20 04:00 38.0 C 79 18 148/68 H 95 05/20/20 00:00 37.7 C 75 18 148/70 H 99 - Problem List Review Problem List Initiated/Reviewed/Updated: Yes - My Orders Last 24 Hours: My Active Orders 05/19/20 22:29 Oxygen Therapy [RC] PRN Up ad Danielle [RC] ASDIRECTED VTE/DVT Education [RC] DAILY Vital Signs [RC] Q4H Acetaminophen [TylenoL] 650 mg PO Q4H PRN oxyCODONE 5 mg PO Q4H PRN Resuscitation Status Routine 05/19/20 22:30 Antiembolic Devices [RC] PER UNIT ROUTINE Pharmacy to Dose - Vancomycin 1 dose .XX ASDIRECTED Sequential Compression Device [OM.PC] Per Unit Routine 05/19/20 22:33 Obtain Past Medical Record [OM.PC] Routine 05/19/20 22:34 Bladder Scan [RC] ASDIRECTED 05/19/20 22:37 Accu Check [Blood Glucose Check, Bedside] [RC] TIDAC 05/19/20 22:45 Sodium Chloride 0.9% [Normal Saline] 1,000 ml IV ASDIRECTED 05/19/20 23:00 Heparin Sodium 5,000 units SUBCUT Q12H 05/20/20 10:54 Foot wo Cont Lt [CT] Routine 05/20/20 11:00 Cefepime [Maxipime in D5W 1 GM/50 ML] 1 gm Premix Bag 1 bag IV Q8H 05/21/20 05:11 BASIC METABOLIC PANEL,BMP [CHEM] AM CBC WITH AUTO DIFF [HEME] AM - Plan Plan:: 54 yo female admitted for left foot cellulitis Left foot cellulitis: treating with vancomycin. Will add cefepime Foot x-ray could not exclude osteomyelitis. MRI of foot ordered Kidney disease. Creatinine is 3.3, Baseline creatinine is 2.4, will continue appropriate hydration.
[2020-05-20] MEDS: Heparin Sodium 5,000 Units/ML Vial SUBCUT SCH ×2 (11:33→22:57)
[2020-05-20] MEDS: Cefepime 1 GM in Premix Bag 1 BAG IV SCH ×2 (11:35→23:00)
--- NOTE | 2020-05-20 12:10 | CT ---
CT LEFT FOOT WITHOUT CONTRAST, 05/20/2020 CLINCIAL HISTORY: Cellulitis. TECHNIQUE: Noncontrast axial images with sagittal and coronal reconstructions. COMPARISON: Radiographs from 05/19/2020. FINDINGS: Diffuse nonspecific soft tissue swelling. No soft tissue gas is identified. No appreciable mayank bony destruction/osteolysis to suggest osteomyelitis. Mild first MTP and midfoot DJD. IMPRESSION: 1. Diffuse nonspecific soft tissue swelling. 2. No appreciable soft tissue gas. 3. No CT evidence of osteomyelitis. If there is additional clinical concern or high clinical suspicion for osteomyelitis, consider MRI. Please note that all CT scans at this facility use dose modulation, iterative reconstruction and/or weight-based dosing when appropriate to reduce radiation dose to as low as reasonably achievable. Addi Young M.D. Body/Diagnostic Radiologist [email or web address] Transcribed: 12:50 pm DW/Dictated by: Addi Young MD @ 05/20/2020 12:47:00 PM (Electronically Signed)
[2020-05-20] MEDS: Insulin Aspart 100 Units/ML 3 ML Pen SUBCUT SCH (18:33)
[2020-05-20] MEDS: oxyCODONE 5 MG Tab PO PRN (19:14)
[2020-05-20] MEDS ORDERED: Albuterol HFA 18 Gm Inhaler INH PRN (19:41)
[2020-05-20] MEDS ORDERED: Lisinopril 10 MG Tab PO SCH ×2 (20:00→21:00)
[2020-05-20] MEDS: Cyclobenzaprine 10 MG Tab PO SCH (20:42)
[2020-05-20] MEDS: Metoprolol Succinate 25 MG Tab.ER PO SCH (20:43)
[2020-05-20] MEDS: Gabapentin 300 MG Cap PO SCH (20:43)
[2020-05-20] MEDS: rOPINIRole 0.5 MG Tab PO SCH (20:45)
[2020-05-20] MEDS: buPROPion 150 MG Tab.ER PO SCH (20:45)
[2020-05-20] MEDS: Acetaminophen 325 MG Tab PO PRN (20:55)
[2020-05-20] MEDS ORDERED: Omeprazole 20 MG Cap.CR PO SCH (21:00)
[2020-05-20] MEDS: Fluticasone Propionate 44 MCG/Puff 10.6 GM Inhaler INH SCH (22:52)
[2020-05-21] MEDS: Sodium Chloride 0.9% 1,000 ML IV SCH ×2 (02:56→20:47)
[2020-05-21] MEDS: oxyCODONE 5 MG Tab PO PRN ×4 (03:49→20:17)
[2020-05-21 06:10] LABS: CARBON DIOXIDE,CO2 22.8 mmol/L (21.0-32.0); POTASSIUM,K 4.3 mmol/L (3.5-5.1)
[2020-05-21] MEDS: Insulin Aspart 100 Units/ML 3 ML Pen SUBCUT SCH ×3 (06:30→18:44)
[2020-05-21] MEDS: amLODIPine 5 MG Tab PO SCH (06:48)
[2020-05-21] MEDS: Potassium Chloride 10 MEQ Tab.ER PO SCH ×3 (08:13→17:08)
[2020-05-21] MEDS: Omeprazole 20 MG Cap.CR PO SCH ×2 (08:13→17:07)
[2020-05-21] MEDS: Metoprolol Succinate 25 MG Tab.ER PO SCH ×2 (08:14→20:43)
[2020-05-21] MEDS: buPROPion 150 MG Tab.ER PO SCH ×2 (08:14→20:45)
[2020-05-21] MEDS: Gabapentin 300 MG Cap PO SCH ×2 (08:14→20:44)
[2020-05-21] MEDS: Furosemide 20 MG Tab PO SCH (08:15)
[2020-05-21] MEDS: Fluticasone Propionate 44 MCG/Puff 10.6 GM Inhaler INH SCH ×2 (08:19→20:46)
[2020-05-21] MEDS ORDERED: Azithromycin 250 MG Tab PO ONE (09:19)
[2020-05-21 10:02] LABS: HEMOGLOBIN A1C 6.1 % (4.5-6.2)
[2020-05-21] MEDS: Heparin Sodium 5,000 Units/ML Vial SUBCUT SCH ×2 (10:06→23:18)
[2020-05-21] MEDS: Cefepime 1 GM in Premix Bag 1 BAG IV SCH ×2 (11:36→23:15)
--- NOTE | 2020-05-21 11:37 | PCM.PN ---
- General Info Date of Service: 05/21/20 Subjective Update: Patient states that she is having foot pain this morning, 02/14 but that her foot is less swollen and red. - Review of Systems General: Denies: Fever, Chills HEENT: Denies: Headaches Pulmonary: Denies: Shortness of Breath, Pleuritic Chest Pain, Cough Cardiovascular: Denies: Chest Pain, Palpitations, Dyspnea on Exertion Gastrointestinal: Denies: Abdominal Pain, Diarrhea, Nausea Musculoskeletal: Reports: Foot Pain - Patient Data Vitals - Most Recent: Last Vital Signs Temp 97.9 F 05/21/20 08:00 Pulse 74 05/21/20 08:14 Resp 18 05/21/20 08:00 BP 164/84 H 05/21/20 08:14 Pulse Ox 94 L 05/21/20 08:00 Weight - Most Recent: 198 lb 11.2 oz I&O - Last 24 Hours: Intake & Output 05/20/20 05/21/20 05/21/20 22:59 06:59 14:59 Intake Total 600 600 Output Total 1220 1700 Balance -620 -1100 Lab Results Last 24 Hours: Laboratory Results - last 24 hr 05/20/20 05/20/20 05/20/20 Range/Units 11:30 16:33 19:25 WBC (4.0-11.0) K/uL RBC (4.30-5.90) M/uL Hgb (12.0-16.0) g/dL Hct (36.0-46.0) % MCV (80.0-98.0) fL MCH (27.0-32.0) pg MCHC (31.0-37.0) g/dL RDW Std Deviation (28.0-62.0) fl RDW Coeff of [place]raine (11.0-15.0) % Plt Count (150-400) K/uL MPV (7.40-12.00) fL Neut % (Auto) (48.0-80.0) % Lymph % (Auto) (16.0-40.0) % [place] % (Auto) (0.0-15.0) % Eos % (Auto) (0.0-7.0) % Baso % (Auto) (0.0-1.5) % Neut # (Auto) (1.4-5.7) K/uL Lymph # (Auto) (0.6-2.4) K/uL [place] # (Auto) (0.0-0.8) K/uL Eos # (Auto) (0.0-0.7) K/uL Baso # (Auto) (0.0-0.1) K/uL Sodium (136-145) mmol/L Potassium (3.5-5.1) mmol/L Chloride (98-107) mmol/L Carbon Dioxide (21.0-32.0) mmol/L BUN (7.0-18.0) mg/dL Creatinine (0.6-1.0) mg/dL Est Cr Clr Drug Dosing mL/min Estimated GFR (MDRD) ml/min Glucose (74-106) mg/dL POC Glucose 208 H 69 (60-110) mg/dL Hemoglobin A1c (4.5-6.2) % Calcium (8.5-10.1) mg/dL Vancomycin Trough 8.0 (5.0-10.0) ug/mL 05/21/20 05/21/20 05/21/20 Range/Units 05:10 05:10 05:10 WBC 11.97 H (4.0-11.0) K/uL RBC 3.07 L (4.30-5.90) M/uL Hgb 9.4 L (12.0-16.0) g/dL Hct 28.5 L (36.0-46.0) % MCV 92.8 (80.0-98.0) fL MCH 30.6 (27.0-32.0) pg MCHC 33.0 (31.0-37.0) g/dL RDW Std Deviation 38.7 (28.0-62.0) fl RDW Coeff of [place]raine 12 (11.0-15.0) % Plt Count 148 L (150-400) K/uL MPV 9.90 (7.40-12.00) fL Neut % (Auto) 71.6 (48.0-80.0) % Lymph % (Auto) 16.0 (16.0-40.0) % [place] % (Auto) 6.9 (0.0-15.0) % Eos % (Auto) 5.3 (0.0-7.0) % Baso % (Auto) 0.2 (0.0-1.5) % Neut # (Auto) 8.6 H (1.4-5.7) K/uL Lymph # (Auto) 1.9 (0.6-2.4) K/uL [place] # (Auto) 0.8 (0.0-0.8) K/uL Eos # (Auto) 0.6 (0.0-0.7) K/uL Baso # (Auto) 0.0 (0.0-0.1) K/uL Sodium 140 (136-145) mmol/L Potassium 4.3 (3.5-5.1) mmol/L Chloride 108 H (98-107) mmol/L Carbon Dioxide 22.8 (21.0-32.0) mmol/L BUN 39 H (7.0-18.0) mg/dL Creatinine 3.0 H (0.6-1.0) mg/dL Est Cr Clr Drug Dosing 22.14 mL/min Estimated GFR (MDRD) 16.2 ml/min Glucose 72 L (74-106) mg/dL POC Glucose (60-110) mg/dL Hemoglobin A1c 6.1 (4.5-6.2) % Calcium 7.8 L (8.5-10.1) mg/dL Vancomycin Trough (5.0-10.0) ug/mL 05/21/20 Range/Units 06:13 WBC (4.0-11.0) K/uL RBC (4.30-5.90) M/uL Hgb (12.0-16.0) g/dL Hct (36.0-46.0) % MCV (80.0-98.0) fL MCH (27.0-32.0) pg MCHC (31.0-37.0) g/dL RDW Std Deviation (28.0-62.0) fl RDW Coeff of [place]raine (11.0-15.0) % Plt Count (150-400) K/uL MPV (7.40-12.00) fL Neut % (Auto) (48.0-80.0) % Lymph % (Auto) (16.0-40.0) % [place] % (Auto) (0.0-15.0) % Eos % (Auto) (0.0-7.0) % Baso % (Auto) (0.0-1.5) % Neut # (Auto) (1.4-5.7) K/uL Lymph # (Auto) (0.6-2.4) K/uL [place] # (Auto) (0.0-0.8) K/uL Eos # (Auto) (0.0-0.7) K/uL Baso # (Auto) (0.0-0.1) K/uL Sodium (136-145) mmol/L Potassium (3.5-5.1) mmol/L Chloride (98-107) mmol/L Carbon Dioxide (21.0-32.0) mmol/L BUN (7.0-18.0) mg/dL Creatinine (0.6-1.0) mg/dL Est Cr Clr Drug Dosing mL/min Estimated GFR (MDRD) ml/min Glucose (74-106) mg/dL POC Glucose 71 (60-110) mg/dL Hemoglobin A1c (4.5-6.2) % Calcium (8.5-10.1) mg/dL Vancomycin Trough (5.0-10.0) ug/mL Med Orders - Current: Current Medications Acetaminophen (Tylenol) 650 mg PO Q4H PRN PRN Reason: Pain (Mild 1-3)/fever Last Admin: 05/20/20 20:55 Dose: 650 mg Documented by: Albuterol (Ventolin Hfa) 0 gm INH ASDIRECTED PRN PRN Reason: Shortness of Breath Amlodipine Besylate (Norvasc) 10 mg PO ACBREAKFAST [facility] Last Admin: 05/21/20 06:48 Dose: 10 mg Documented by: Azithromycin (Zithromax) 250 mg PO Q24H [facility] Bupropion HCl (Wellbutrin Xl) 150 mg PO BID [facility] Last Admin: 05/21/20 08:14 Dose: 150 mg Documented by: Cyclobenzaprine HCl (Flexeril) 10 mg PO BEDTIME [facility] Last Admin: 05/20/20 20:42 Dose: 10 mg Documented by: Fluticasone Propionate (Flovent Hfa 44 Mcg) 0 gm INH BID [facility] Last Admin: 05/21/20 08:19 Dose: 1 puff Documented by: Furosemide (Lasix) 60 mg PO DAILY [facility] Last Admin: 05/21/20 08:15 Dose: 60 mg Documented by: Gabapentin (Neurontin) 600 mg PO BID [facility] Last Admin: 05/21/20 08:14 Dose: 600 mg Documented by: Heparin Sodium (Porcine) (Heparin Sodium) 5,000 units SUBCUT Q12H [facility] Last Admin: 05/21/20 10:06 Dose: 5,000 units Documented by: Sodium Chloride (Normal Saline) 1,000 mls @ 75 mls/hr IV ASDIRECTED [facility] Last Infusion: 05/21/20 07:37 Dose: 75 mls/hr Documented by: Cefepime HCl 1 gm/ Premix 50 mls @ 100 mls/hr IV Q12H [facility] Last Admin: 05/20/20 23:00 Dose: 100 mls/hr Documented by: Vancomycin HCl 1.25 gm/ Sodium (Chloride) 250 mls @ 166.667 mls/hr IV Q24H [facility] Insulin Aspart (Novolog) 0 unit SUBCUT TIDAC [facility]; Protocol Last Admin: 05/21/20 06:30 Dose: Not Given Documented by: Metoprolol Succinate (Toprol Xl) 12.5 mg PO BID [facility] Last Admin: 05/21/20 08:14 Dose: 12.5 mg Documented by: Omeprazole (Omeprazole) 40 mg PO BIDAC [facility] Last Admin: 05/21/20 08:13 Dose: 40 mg Documented by: Oxycodone HCl (Oxycodone) 5 mg PO Q4H PRN PRN Reason: Pain (moderate 4-6) Last Admin: 05/21/20 08:38 Dose: 5 mg Documented by: Potassium Chloride (Klor-Con 10) 20 meq PO TIDMEALS [facility] Last Admin: 05/21/20 08:13 Dose: 20 meq Documented by: Ropinirole HCl (Requip) 0.5 mg PO BEDTIME [facility] Last Admin: 05/20/20 20:45 Dose: 0.5 mg Documented by: Sodium Chloride (Saline Flush) 10 ml FLUSH ASDIRECTED PRN PRN Reason: Keep Vein Open Last Admin: 05/19/20 16:48 Dose: 10 ml Documented by: Sodium Chloride (Saline Flush) 2.5 ml FLUSH ASDIRECTED PRN PRN Reason: Keep Vein Open Last Admin: 05/19/20 16:48 Dose: 2.5 ml Documented by: Vancomycin HCl (Pharmacy To Dose - Vancomycin) 1 dose .XX ASDIRECTED [facility] Discontinued Medications Azithromycin (Zithromax) 500 mg PO Q24H ONE Stop: 05/21/20 09:20 Last Admin: 05/21/20 10:00 Dose: 500 mg Documented by: Cephalexin (Keflex) 1,000 mg PO ONETIME ONE Stop: 05/19/20 19:35 Last Admin: 05/19/20 20:04 Dose: Not Given Documented by: Piperacillin Sod/Tazobactam (Sod 3.375 gm/ Sodium Chloride) 50 mls @ 100 mls/hr IV ONETIME ONE Stop: 05/19/20 20:12 Last Admin: 05/20/20 02:16 Dose: Not Given Documented by: Vancomycin HCl 1 gm/ Sodium (Chloride) 250 mls @ 166 mls/hr IV ONETIME ONE Stop: 05/19/20 21:13 Last Admin: 05/19/20 20:04 Dose: 166 mls/hr Documented by: Cefepime HCl 2 gm/ Premix 50 mls @ 100 mls/hr IV ONETIME ONE Stop: 05/19/20 20:17 Last Admin: 05/20/20 02:14 Dose: Not Given Documented by: Cefepime HCl 1 gm/ Premix 50 mls @ 100 mls/hr IV Q8H [facility] Vancomycin HCl 1 gm/ Sodium (Chloride) 250 mls @ 166 mls/hr IV ONETIME ONE Stop: 05/20/20 22:30 Last Admin: 05/20/20 20:47 Dose: 166 mls/hr Documented by: Lisinopril (Prinivil) 40 mg PO DAILY [facility] Lisinopril (Prinivil) 40 mg PO DAILY [facility] Last Admin: 05/20/20 20:42 Dose: 40 mg Documented by: Omeprazole (Omeprazole) 40 mg PO BID [facility] Last Admin: 05/20/20 20:45 Dose: 40 mg Documented by: Vancomycin HCl (Vancocin) Confirm Administered Dose 1 gm .ROUTE .STK-MED ONE Stop: 05/19/20 19:51 Last Admin: 05/19/20 22:49 Dose: Not Given Documented by: - Exam General: Alert, Oriented Lungs: Clear to Auscultation, Normal Respiratory Effort Cardiovascular: Regular Rate, Regular Rhythm GI/Abdominal Exam: Soft, Non-Tender, No Distention Extremities: No Pedal Edema, Other (cat scratches on lower legs bilaterally) Skin: Other (cat scratches on lower legs bilaterally) Neurological: Normal Speech Sepsis Event Note - Evaluation Sepsis Screening Result: No Definite Risk - Focused Exam Vital Signs: Vital Signs Temp Pulse Pulse Resp BP BP Pulse Ox 05/21/20 08:14 74 164/84 H 05/21/20 08:00 97.9 F 74 18 164/84 H 94 L 05/21/20 06:48 149/74 H 05/21/20 04:00 97.9 F 70 18 149/74 H 96 - Problem List Review Problem List Initiated/Reviewed/Updated: Yes - My Orders Last 24 Hours: My Active Orders 05/20/20 19:41 Albuterol [Ventolin HFA] 0 gm INH ASDIRECTED PRN 05/20/20 19:47 RT Post Treatment Assessment [RC] Click to Edit RT Pre-Treatment Assessment [RC] Click to Edit 05/20/20 21:00 Cyclobenzaprine [Flexeril] 10 mg PO BEDTIME Fluticasone Propionate [Flovent HFA 44 MCG] 0 gm INH BID Gabapentin [Neurontin] 600 mg PO BID Metoprolol Succinate [Toprol XL] 12.5 mg PO BID buPROPion [Wellbutrin XL] 150 mg PO BID rOPINIRole [Requip] 0.5 mg PO BEDTIME 05/21/20 07:30 Omeprazole 40 mg PO BIDAC amLODIPine [Norvasc] 10 mg PO ACBREAKFAST 05/21/20 08:00 Potassium Chloride [Klor-Con 10] 20 meq PO TIDMEALS 05/21/20 09:00 Furosemide [Lasix] 60 mg PO DAILY - Plan Plan:: Cellulitis (Left foot): Vancomycin and cefepime. MRI ordered, results pending. CKD Stg 4- GFR 16, Creatinine 3.0, Will monitor and provide fluids as needed. Patients kidney function has improved from the previous day.
--- NOTE | 2020-05-21 13:49 | MR ---
HISTORY: Cellulitis. TECHNIQUE: MRI left foot without contrast. COMPARISON: CT left foot 05/20/2020. FINDINGS: Severe motion artifact on several sequences. Patchy marrow edema throughout the bones of the midfoot and in the anterior calcaneus. Localized marrow edema in the talus adjacent to the sinus tarsi. Mild marrow edema in the distal 5th metatarsal. Effusion of the 5th MTP joint. No erosions. No osteomyelitis. Physiologic quantity of fluid in the tendon sheaths. Intramuscular edema. Lisfranc ligament is intact. 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 Plantar aponeurosis origin enthesophyte. Plantar aponeurosis is thickened in the hindfoot. Severe subcutaneous edema in the dorsum of the foot. IMPRESSION: 1. Motion compromised exam. 2. No osteomyelitis. 3. Patchy marrow edema in the bones of the midfoot and anterior calcaneus may be from stress reactions. No fracture. 4. Mild marrow edema in the distal 5th metatarsal may also be from stress reaction. Fifth MTP joint effusion. 5. Muscle edema due to denervation or myositis. 6. Subcutaneous edema. Dictated by Angel Dennis MD @ May 21 2020 1:47PM Signed by Dr. Angel Dennis @ May 21 2020 1:47PM
[2020-05-21] MEDS: Acetaminophen 325 MG Tab PO PRN ×2 (17:08→23:24)
[2020-05-21] MEDS: Cyclobenzaprine 10 MG Tab PO SCH (20:45)
[2020-05-21] MEDS: rOPINIRole 0.5 MG Tab PO SCH (20:45)
[2020-05-22 05:53] LABS: CARBON DIOXIDE,CO2 20.7 mmol/L (21.0-32.0); POTASSIUM,K 4.6 mmol/L (3.5-5.1)
[2020-05-22] MEDS: Omeprazole 20 MG Cap.CR PO SCH ×2 (06:32→17:11)
[2020-05-22] MEDS: oxyCODONE 5 MG Tab PO PRN ×4 (06:32→21:46)
[2020-05-22] MEDS: amLODIPine 5 MG Tab PO SCH (06:33)
[2020-05-22] MEDS: Insulin Aspart 100 Units/ML 3 ML Pen SUBCUT SCH ×3 (06:36→17:50)
[2020-05-22] MEDS: Gabapentin 300 MG Cap PO SCH ×2 (08:57→21:39)
[2020-05-22] MEDS: buPROPion 150 MG Tab.ER PO SCH ×2 (08:58→21:39)
[2020-05-22] MEDS: Azithromycin 250 MG Tab PO SCH (08:59)
[2020-05-22] MEDS: Potassium Chloride 20 MEQ Tab.ER PO SCH ×3 (08:59→17:11)
[2020-05-22] MEDS: Metoprolol Succinate 25 MG Tab.ER PO SCH ×2 (09:00→21:39)
[2020-05-22] MEDS: Furosemide 20 MG Tab PO SCH (09:01)
[2020-05-22] MEDS: Fluticasone Propionate 44 MCG/Puff 10.6 GM Inhaler INH SCH ×2 (09:01→21:50)
[2020-05-22] MEDS: Acetaminophen 325 MG Tab PO PRN (09:05)
[2020-05-22] MEDS: Heparin Sodium 5,000 Units/ML Vial SUBCUT SCH ×2 (10:47→23:48)
[2020-05-22] MEDS: Cefepime 1 GM in Premix Bag 1 BAG IV SCH ×2 (11:00→23:49)
[2020-05-22] MEDS: Sodium Chloride 0.9% 1,000 ML IV SCH (11:00)
[2020-05-22] MEDS ORDERED: Petrolatum,White Ointment 50 GM Tube TOP PRN (11:14)
--- NOTE | 2020-05-22 11:28 | PCM.PN ---
- General Info Date of Service: 05/22/20 Subjective Update: Patient states that she still has foot pain, notices that her edema is more diffuse but feels like the redness has decreased. Denies fever, chills. States that she has lots of foot dryness. - Review of Systems General: Denies: Fever, Malaise, Chills HEENT: Denies: Headaches Pulmonary: Denies: Shortness of Breath, Pleuritic Chest Pain, Cough Cardiovascular: Denies: Chest Pain, Palpitations, Dyspnea on Exertion Gastrointestinal: Denies: Abdominal Pain, Decreased Appetite, Diarrhea Musculoskeletal: Reports: Foot Pain Skin: Reports: Dryness (both feet), Rash, Other (left foot redness and swelling) Neurological: Denies: Dizziness, Headache Psychiatric: Denies: Confusion - Patient Data Vitals - Most Recent: Last Vital Signs Temp 98.2 F 05/22/20 08:00 Pulse 71 05/22/20 09:00 Resp 17 05/22/20 08:00 BP 154/73 H 05/22/20 09:00 Pulse Ox 99 05/22/20 08:00 Weight - Most Recent: 198 lb 11.2 oz I&O - Last 24 Hours: Intake & Output 05/21/20 05/22/20 05/22/20 22:59 06:59 14:59 Intake Total 1997 1100 Output Total 1999 800 Balance -2 300 Lab Results Last 24 Hours: Laboratory Results - last 24 hr 05/21/20 05/21/20 05/21/20 Range/Units 11:34 17:46 20:03 WBC (4.0-11.0) K/uL RBC (4.30-5.90) M/uL Hgb (12.0-16.0) g/dL Hct (36.0-46.0) % MCV (80.0-98.0) fL MCH (27.0-32.0) pg MCHC (31.0-37.0) g/dL RDW Std Deviation (28.0-62.0) fl RDW Coeff of Lorraine (11.0-15.0) % Plt Count (150-400) K/uL MPV (7.40-12.00) fL Neut % (Auto) (48.0-80.0) % Lymph % (Auto) (16.0-40.0) % [place] % (Auto) (0.0-15.0) % Eos % (Auto) (0.0-7.0) % Baso % (Auto) (0.0-1.5) % Neut # (Auto) (1.4-5.7) K/uL Lymph # (Auto) (0.6-2.4) K/uL [place] # (Auto) (0.0-0.8) K/uL Eos # (Auto) (0.0-0.7) K/uL Baso # (Auto) (0.0-0.1) K/uL Nucleated RBC % /100WBC Nucleated RBCs # K/uL Sodium (136-145) mmol/L Potassium (3.5-5.1) mmol/L Chloride (98-107) mmol/L Carbon Dioxide (21.0-32.0) mmol/L BUN (7.0-18.0) mg/dL Creatinine (0.6-1.0) mg/dL Est Cr Clr Drug Dosing mL/min Estimated GFR (MDRD) ml/min Glucose (74-106) mg/dL POC Glucose 113 H 127 H (60-110) mg/dL Calcium (8.5-10.1) mg/dL Random Vancomycin 15.7 ug/mL 05/22/20 05/22/20 05/22/20 Range/Units 04:58 04:58 06:35 WBC 13.06 H (4.0-11.0) K/uL RBC 2.99 L (4.30-5.90) M/uL Hgb 9.1 L (12.0-16.0) g/dL Hct 27.5 L (36.0-46.0) % MCV 92.0 (80.0-98.0) fL MCH 30.4 (27.0-32.0) pg MCHC 33.1 (31.0-37.0) g/dL RDW Std Deviation 42.3 (28.0-62.0) fl RDW Coeff of [place]raine 12 (11.0-15.0) % Plt Count 166 (150-400) K/uL MPV 9.80 (7.40-12.00) fL Neut % (Auto) 71.5 (48.0-80.0) % Lymph % (Auto) 15.0 L (16.0-40.0) % [place] % (Auto) 7.8 (0.0-15.0) % Eos % (Auto) 5.5 (0.0-7.0) % Baso % (Auto) 0.2 (0.0-1.5) % Neut # (Auto) 9.3 H (1.4-5.7) K/uL Lymph # (Auto) 2.0 (0.6-2.4) K/uL [place] # (Auto) 1.0 H (0.0-0.8) K/uL Eos # (Auto) 0.7 (0.0-0.7) K/uL Baso # (Auto) 0.0 (0.0-0.1) K/uL Nucleated RBC % 0.0 /100WBC Nucleated RBCs # 0 K/uL Sodium 141 (136-145) mmol/L Potassium 4.6 (3.5-5.1) mmol/L Chloride 107 (98-107) mmol/L Carbon Dioxide 20.7 L (21.0-32.0) mmol/L BUN 40 H (7.0-18.0) mg/dL Creatinine 2.9 H (0.6-1.0) mg/dL Est Cr Clr Drug Dosing 22.91 mL/min Estimated GFR (MDRD) 16.8 ml/min Glucose 72 L (74-106) mg/dL POC Glucose 56 L (60-110) mg/dL Calcium 8.0 L (8.5-10.1) mg/dL Random Vancomycin ug/mL 05/22/20 Range/Units 07:23 WBC (4.0-11.0) K/uL RBC (4.30-5.90) M/uL Hgb (12.0-16.0) g/dL Hct (36.0-46.0) % MCV (80.0-98.0) fL MCH (27.0-32.0) pg MCHC (31.0-37.0) g/dL RDW Std Deviation (28.0-62.0) fl RDW Coeff of Lorraine (11.0-15.0) % Plt Count (150-400) K/uL MPV (7.40-12.00) fL Neut % (Auto) (48.0-80.0) % Lymph % (Auto) (16.0-40.0) % [place] % (Auto) (0.0-15.0) % Eos % (Auto) (0.0-7.0) % Baso % (Auto) (0.0-1.5) % Neut # (Auto) (1.4-5.7) K/uL Lymph # (Auto) (0.6-2.4) K/uL [place] # (Auto) (0.0-0.8) K/uL Eos # (Auto) (0.0-0.7) K/uL Baso # (Auto) (0.0-0.1) K/uL Nucleated RBC % /100WBC Nucleated RBCs # K/uL Sodium (136-145) mmol/L Potassium (3.5-5.1) mmol/L Chloride (98-107) mmol/L Carbon Dioxide (21.0-32.0) mmol/L BUN (7.0-18.0) mg/dL Creatinine (0.6-1.0) mg/dL Est Cr Clr Drug Dosing mL/min Estimated GFR (MDRD) ml/min Glucose (74-106) mg/dL POC Glucose 150 H (60-110) mg/dL Calcium (8.5-10.1) mg/dL Random Vancomycin ug/mL Med Orders - Current: Current Medications Acetaminophen (Tylenol) 650 mg PO Q4H PRN PRN Reason: Pain (Mild 1-3)/fever Last Admin: 05/22/20 09:05 Dose: 650 mg Documented by: Albuterol (Ventolin Hfa) 0 gm INH ASDIRECTED PRN PRN Reason: Shortness of Breath Amlodipine Besylate (Norvasc) 10 mg PO ACBREAKFAST [facility] Last Admin: 05/22/20 06:33 Dose: 10 mg Documented by: Azithromycin (Zithromax) 250 mg PO Q24H [facility] Last Admin: 05/22/20 08:59 Dose: 250 mg Documented by: Bupropion HCl (Wellbutrin Xl) 150 mg PO BID [facility] Last Admin: 05/22/20 08:58 Dose: 150 mg Documented by: Cyclobenzaprine HCl (Flexeril) 10 mg PO BEDTIME [facility] Last Admin: 05/21/20 20:45 Dose: 10 mg Documented by: Fluticasone Propionate (Flovent Hfa 44 Mcg) 0 gm INH BID [facility] Last Admin: 05/22/20 09:01 Dose: 1 puff Documented by: Furosemide (Lasix) 60 mg PO DAILY [facility] Last Admin: 05/22/20 09:01 Dose: 60 mg Documented by: Gabapentin (Neurontin) 600 mg PO BID [facility] Last Admin: 05/22/20 08:57 Dose: 600 mg Documented by: Heparin Sodium (Porcine) (Heparin Sodium) 5,000 units SUBCUT Q12H [facility] Last Admin: 05/22/20 10:47 Dose: 5,000 units Documented by: Sodium Chloride (Normal Saline) 1,000 mls @ 75 mls/hr IV ASDIRECTED [facility] Last Admin: 05/22/20 11:00 Dose: 75 mls/hr Documented by: Cefepime HCl 1 gm/ Premix 50 mls @ 100 mls/hr IV Q12H [facility] Last Admin: 05/22/20 11:00 Dose: 100 mls/hr Documented by: Vancomycin HCl 1.25 gm/ Sodium (Chloride) 250 mls @ 166.667 mls/hr IV Q24H [facility] Last Admin: 05/21/20 21:40 Dose: 166.667 mls/hr Documented by: Insulin Aspart (Novolog) 0 unit SUBCUT TIDAC [facility]; Protocol Last Admin: 05/22/20 06:36 Dose: Not Given Documented by: Metoprolol Succinate (Toprol Xl) 12.5 mg PO BID [facility] Last Admin: 05/22/20 09:00 Dose: 12.5 mg Documented by: Omeprazole (Omeprazole) 40 mg PO BIDAC [facility] Last Admin: 05/22/20 06:32 Dose: 40 mg Documented by: Oxycodone HCl (Oxycodone) 5 mg PO Q4H PRN PRN Reason: Pain (moderate 4-6) Last Admin: 05/22/20 10:46 Dose: 5 mg Documented by: Petrolatum (Aquaphor With Natural Healing) 0 gm TOP ASDIRECTED PRN PRN Reason: Dryness Potassium Chloride (Klor-Con M20) 20 meq PO TIDMEALS [facility] Last Admin: 05/22/20 08:59 Dose: 20 meq Documented by: Ropinirole HCl (Requip) 0.5 mg PO BEDTIME [facility] Last Admin: 05/21/20 20:45 Dose: 0.5 mg Documented by: Sodium Chloride (Saline Flush) 10 ml FLUSH ASDIRECTED PRN PRN Reason: Keep Vein Open Last Admin: 05/19/20 16:48 Dose: 10 ml Documented by: Sodium Chloride (Saline Flush) 2.5 ml FLUSH ASDIRECTED PRN PRN Reason: Keep Vein Open Last Admin: 05/19/20 16:48 Dose: 2.5 ml Documented by: Vancomycin HCl (Pharmacy To Dose - Vancomycin) 1 dose .XX ASDIRECTED [facility] Discontinued Medications Azithromycin (Zithromax) 500 mg PO Q24H ONE Stop: 05/21/20 09:20 Last Admin: 05/21/20 10:00 Dose: 500 mg Documented by: Cephalexin (Keflex) 1,000 mg PO ONETIME ONE Stop: 05/19/20 19:35 Last Admin: 05/19/20 20:04 Dose: Not Given Documented by: Piperacillin Sod/Tazobactam (Sod 3.375 gm/ Sodium Chloride) 50 mls @ 100 mls/hr IV ONETIME ONE Stop: 05/19/20 20:12 Last Admin: 05/20/20 02:16 Dose: Not Given Documented by: Vancomycin HCl 1 gm/ Sodium (Chloride) 250 mls @ 166 mls/hr IV ONETIME ONE Stop: 05/19/20 21:13 Last Admin: 05/19/20 20:04 Dose: 166 mls/hr Documented by: Cefepime HCl 2 gm/ Premix 50 mls @ 100 mls/hr IV ONETIME ONE Stop: 05/19/20 20:17 Last Admin: 05/20/20 02:14 Dose: Not Given Documented by: Cefepime HCl 1 gm/ Premix 50 mls @ 100 mls/hr IV Q8H [facility] Vancomycin HCl 1 gm/ Sodium (Chloride) 250 mls @ 166 mls/hr IV ONETIME ONE Stop: 05/20/20 22:30 Last Admin: 05/20/20 20:47 Dose: 166 mls/hr Documented by: Lisinopril (Prinivil) 40 mg PO DAILY [facility] Lisinopril (Prinivil) 40 mg PO DAILY [facility] Last Admin: 05/20/20 20:42 Dose: 40 mg Documented by: Omeprazole (Omeprazole) 40 mg PO BID [facility] Last Admin: 05/20/20 20:45 Dose: 40 mg Documented by: Potassium Chloride (Klor-Con 10) 20 meq PO TIDMEALS [facility] Last Admin: 05/21/20 17:08 Dose: 20 meq Documented by: Vancomycin HCl (Vancocin) Confirm Administered Dose 1 gm .ROUTE .STK-MED ONE Stop: 05/19/20 19:51 Last Admin: 05/19/20 22:49 Dose: Not Given Documented by: - Exam General: Alert Lungs: Clear to Auscultation, Normal Respiratory Effort Cardiovascular: Regular Rate, Regular Rhythm GI/Abdominal Exam: Soft, Non-Tender, No Distention Extremities: No Pedal Edema, Redness (left foot), Other (patient has edema and erythema of the left foot. ). No: Leg Pain Skin: Dry Sepsis Event Note - Evaluation Sepsis Screening Result: No Definite Risk - Focused Exam Vital Signs: Vital Signs Temp Pulse Pulse Resp BP BP Pulse Ox 05/22/20 09:00 71 154/73 H 05/22/20 08:00 98.2 F 73 17 139/73 99 05/22/20 07:38 98.1 F 71 12 154/73 H 98 05/22/20 06:33 145/72 H 05/22/20 04:00 98.1 F 70 16 140/75 96 - Problem List Review Problem List Initiated/Reviewed/Updated: Yes - My Orders Last 24 Hours: My Active Orders 05/22/20 08:00 Potassium Chloride [Klor-Con M20] 20 meq PO TIDMEALS 05/22/20 11:14 Petrolatum,White [Aquaphor with Natural Healing] See Dose Instructions TOP ASDIRECTED PRN - Plan Plan:: Cellulitis (Left foot): Vancomycin, cefepime azithromycin. MRI showed no signs of osteomyelitis. Will continue abx treatment and reassess in the AM. CKD Stg 3b- GFR 22.9, Creatinine 2.9, Will monitor and provide fluids as needed. Patients kidney function has improved from the previous day.
[2020-05-22] MEDS: Cyclobenzaprine 10 MG Tab PO SCH (21:39)
[2020-05-22] MEDS: rOPINIRole 0.5 MG Tab PO SCH (21:40)
[2020-05-23] MEDS: oxyCODONE 5 MG Tab PO PRN ×5 (04:22→22:48)
[2020-05-23 06:21] LABS: POTASSIUM,K 4.9 mmol/L (3.5-5.1)
[2020-05-23] MEDS: Sodium Chloride 0.9% 1,000 ML IV SCH ×2 (07:38→21:51)
[2020-05-23] MEDS: Omeprazole 20 MG Cap.CR PO SCH ×2 (07:53→17:27)
[2020-05-23] MEDS: amLODIPine 5 MG Tab PO SCH (07:53)
[2020-05-23] MEDS: Acetaminophen 325 MG Tab PO PRN ×2 (07:54→19:57)
[2020-05-23] MEDS: Insulin Aspart 100 Units/ML 3 ML Pen SUBCUT SCH ×3 (07:55→17:07)
[2020-05-23] MEDS: Potassium Chloride 20 MEQ Tab.ER PO SCH ×3 (09:19→17:27)
[2020-05-23] MEDS: Furosemide 20 MG Tab PO SCH (09:20)
[2020-05-23] MEDS: buPROPion 150 MG Tab.ER PO SCH ×2 (09:20→21:54)
[2020-05-23] MEDS: Gabapentin 300 MG Cap PO SCH ×2 (09:20→21:54)
[2020-05-23] MEDS: Metoprolol Succinate 25 MG Tab.ER PO SCH ×2 (09:21→21:53)
[2020-05-23] MEDS: Azithromycin 250 MG Tab PO SCH (09:22)
[2020-05-23] MEDS: Fluticasone Propionate 44 MCG/Puff 10.6 GM Inhaler INH SCH ×2 (09:23→21:55)
[2020-05-23] MEDS: Cefepime 1 GM in Premix Bag 1 BAG IV SCH ×2 (11:11→23:54)
[2020-05-23] MEDS: Heparin Sodium 5,000 Units/ML Vial SUBCUT SCH ×2 (11:11→23:51)
--- NOTE | 2020-05-23 11:45 | PCM.PN ---
- General Info Date of Service: 05/23/20 Subjective Update: Patient states 6/10 pain. States that redness and swelling is similar to yesterday. Denies fever, chills, nausea. - Review of Systems General: Denies: Fever, Chills Pulmonary: Denies: Shortness of Breath, Pleuritic Chest Pain, Cough Cardiovascular: Denies: Chest Pain Gastrointestinal: Denies: Abdominal Pain, Decreased Appetite, Nausea Musculoskeletal: Reports: Foot Pain (left foot) Skin: Reports: Other (left foot redness, edema) - Patient Data Vitals - Most Recent: Last Vital Signs Temp 99.3 F 05/23/20 07:38 Pulse 78 05/23/20 09:21 Resp 18 05/23/20 07:38 BP 128/73 05/23/20 09:21 Pulse Ox 91 L 05/23/20 07:38 Weight - Most Recent: 198 lb 11.2 oz I&O - Last 24 Hours: Intake & Output 05/22/20 05/23/20 05/23/20 22:59 06:59 14:59 Intake Total 1120 1397 Output Total 1550 2400 Balance -430 -1003 Lab Results Last 24 Hours: Laboratory Results - last 24 hr 05/22/20 05/23/20 05/23/20 Range/Units 16:25 05:42 05:42 WBC 10.47 (4.0-11.0) K/uL RBC 3.02 L (4.30-5.90) M/uL Hgb 9.0 L (12.0-16.0) g/dL Hct 27.6 L (36.0-46.0) % MCV 91.4 (80.0-98.0) fL MCH 29.8 (27.0-32.0) pg MCHC 32.6 (31.0-37.0) g/dL RDW Std Deviation 41.4 (28.0-62.0) fl RDW Coeff of Lorraine 12 (11.0-15.0) % Plt Count 161 (150-400) K/uL MPV 9.30 (7.40-12.00) fL Neut % (Auto) 71.2 (48.0-80.0) % Lymph % (Auto) 16.0 (16.0-40.0) % [place] % (Auto) 6.5 (0.0-15.0) % Eos % (Auto) 6.0 (0.0-7.0) % Baso % (Auto) 0.3 (0.0-1.5) % Neut # (Auto) 7.5 H (1.4-5.7) K/uL Lymph # (Auto) 1.7 (0.6-2.4) K/uL [place] # (Auto) 0.7 (0.0-0.8) K/uL Eos # (Auto) 0.6 (0.0-0.7) K/uL Baso # (Auto) 0.0 (0.0-0.1) K/uL Nucleated RBC % 0.0 /100WBC Nucleated RBCs # 0 K/uL Sodium 138 (136-145) mmol/L Potassium 4.9 (3.5-5.1) mmol/L Chloride 107 (98-107) mmol/L Carbon Dioxide 21.0 (21.0-32.0) mmol/L BUN 42 H (7.0-18.0) mg/dL Creatinine 2.8 H (0.6-1.0) mg/dL Est Cr Clr Drug Dosing 23.72 mL/min Estimated GFR (MDRD) 17.5 ml/min Glucose 74 (74-106) mg/dL POC Glucose 91 (60-110) mg/dL Calcium 7.9 L (8.5-10.1) mg/dL 05/23/20 Range/Units 05:44 WBC (4.0-11.0) K/uL RBC (4.30-5.90) M/uL Hgb (12.0-16.0) g/dL Hct (36.0-46.0) % MCV (80.0-98.0) fL MCH (27.0-32.0) pg MCHC (31.0-37.0) g/dL RDW Std Deviation (28.0-62.0) fl RDW Coeff of Lorraine (11.0-15.0) % Plt Count (150-400) K/uL MPV (7.40-12.00) fL Neut % (Auto) (48.0-80.0) % Lymph % (Auto) (16.0-40.0) % [place] % (Auto) (0.0-15.0) % Eos % (Auto) (0.0-7.0) % Baso % (Auto) (0.0-1.5) % Neut # (Auto) (1.4-5.7) K/uL Lymph # (Auto) (0.6-2.4) K/uL [place] # (Auto) (0.0-0.8) K/uL Eos # (Auto) (0.0-0.7) K/uL Baso # (Auto) (0.0-0.1) K/uL Nucleated RBC % /100WBC Nucleated RBCs # K/uL Sodium (136-145) mmol/L Potassium (3.5-5.1) mmol/L Chloride (98-107) mmol/L Carbon Dioxide (21.0-32.0) mmol/L BUN (7.0-18.0) mg/dL Creatinine (0.6-1.0) mg/dL Est Cr Clr Drug Dosing mL/min Estimated GFR (MDRD) ml/min Glucose (74-106) mg/dL POC Glucose 69 (60-110) mg/dL Calcium (8.5-10.1) mg/dL Med Orders - Current: Current Medications Acetaminophen (Tylenol) 650 mg PO Q4H PRN PRN Reason: Pain (Mild 1-3)/fever Last Admin: 05/23/20 07:54 Dose: 650 mg Documented by: Albuterol (Ventolin Hfa) 0 gm INH ASDIRECTED PRN PRN Reason: Shortness of Breath Amlodipine Besylate (Norvasc) 10 mg PO ACBREAKFAST [facility] Last Admin: 05/23/20 07:53 Dose: 10 mg Documented by: Azithromycin (Zithromax) 250 mg PO Q24H [facility] Last Admin: 05/23/20 09:22 Dose: 250 mg Documented by: Bupropion HCl (Wellbutrin Xl) 150 mg PO BID [facility] Last Admin: 05/23/20 09:20 Dose: 150 mg Documented by: Cyclobenzaprine HCl (Flexeril) 10 mg PO BEDTIME [facility] Last Admin: 05/22/20 21:39 Dose: 10 mg Documented by: Fluticasone Propionate (Flovent Hfa 44 Mcg) 0 gm INH BID [facility] Last Admin: 05/23/20 09:23 Dose: 1 puff Documented by: Furosemide (Lasix) 60 mg PO DAILY [facility] Last Admin: 05/23/20 09:20 Dose: 60 mg Documented by: Gabapentin (Neurontin) 600 mg PO BID [facility] Last Admin: 05/23/20 09:20 Dose: 600 mg Documented by: Heparin Sodium (Porcine) (Heparin Sodium) 5,000 units SUBCUT Q12H [facility] Last Admin: 05/23/20 11:11 Dose: 5,000 units Documented by: Sodium Chloride (Normal Saline) 1,000 mls @ 75 mls/hr IV ASDIRECTED [facility] Last Admin: 05/23/20 07:38 Dose: 75 mls/hr Documented by: Cefepime HCl 1 gm/ Premix 50 mls @ 100 mls/hr IV Q12H [facility] Last Admin: 05/23/20 11:11 Dose: 100 mls/hr Documented by: Vancomycin HCl 1.25 gm/ Sodium (Chloride) 250 mls @ 166.667 mls/hr IV Q24H [facility] Last Admin: 05/22/20 21:57 Dose: 166.667 mls/hr Documented by: Insulin Aspart (Novolog) 0 unit SUBCUT TIDAC [facility]; Protocol Last Admin: 05/23/20 07:55 Dose: 1 units Documented by: Metoprolol Succinate (Toprol Xl) 12.5 mg PO BID [facility] Last Admin: 05/23/20 09:21 Dose: 12.5 mg Documented by: [facility] Admin: 05/23/20 07:53 Dose: 40 mg Documented by: Oxycodone HCl (Oxycodone) 5 mg PO Q4H PRN PRN Reason: Pain (moderate 4-6) Last Admin: 05/23/20 09:22 Dose: 5 mg Documented by: Petrolatum (Aquaphor With Natural Healing) 0 gm TOP ASDIRECTED PRN PRN Reason: Dryness Last Admin: 05/23/20 09:18 Dose: 1 applic Documented by: Potassium Chloride (Klor-Con M20) 20 meq PO TIDMEALS [facility] Last Admin: 05/23/20 09:19 Dose: 20 meq Documented by: Ropinirole HCl (Requip) 0.5 mg PO BEDTIME [facility] Last Admin: 05/22/20 21:40 Dose: 0.5 mg Documented by: Sodium Chloride (Saline Flush) 10 ml FLUSH ASDIRECTED PRN PRN Reason: Keep Vein Open Last Admin: 05/19/20 16:48 Dose: 10 ml Documented by: Sodium Chloride (Saline Flush) 2.5 ml FLUSH ASDIRECTED PRN PRN Reason: Keep Vein Open Last Admin: 05/19/20 16:48 Dose: 2.5 ml Documented by: Vancomycin HCl (Pharmacy To Dose - Vancomycin) 1 dose .XX ASDIRECTED [facility] Discontinued Medications Azithromycin (Zithromax) 500 mg PO Q24H ONE Stop: 05/21/20 09:20 Last Admin: 05/21/20 10:00 Dose: 500 mg Documented by: Cephalexin (Keflex) 1,000 mg PO ONETIME ONE Stop: 05/19/20 19:35 Last Admin: 05/19/20 20:04 Dose: Not Given Documented by: Piperacillin Sod/Tazobactam (Sod 3.375 gm/ Sodium Chloride) 50 mls @ 100 mls/hr IV ONETIME ONE Stop: 05/19/20 20:12 Last Admin: 05/20/20 02:16 Dose: Not Given Documented by: Vancomycin HCl 1 gm/ Sodium (Chloride) 250 mls @ 166 mls/hr IV ONETIME ONE Stop: 05/19/20 21:13 Last Admin: 05/19/20 20:04 Dose: 166 mls/hr Documented by: Cefepime HCl 2 gm/ Premix 50 mls @ 100 mls/hr IV ONETIME ONE Stop: 05/19/20 20:17 Last Admin: 05/20/20 02:14 Dose: Not Given Documented by: Cefepime HCl 1 gm/ Premix 50 mls @ 100 mls/hr IV Q8H [facility] Vancomycin HCl 1 gm/ Sodium (Chloride) 250 mls @ 166 mls/hr IV ONETIME ONE Stop: 05/20/20 22:30 Last Admin: 05/20/20 20:47 Dose: 166 mls/hr Documented by: Lisinopril (Prinivil) 40 mg PO DAILY [facility] Lisinopril (Prinivil) 40 mg PO DAILY [facility] Last Admin: 05/20/20 20:42 Dose: 40 mg Documented by: Omeprazole (Omeprazole) 40 mg PO BID [facility] Last Admin: 05/20/20 20:45 Dose: 40 mg Documented by: Potassium Chloride (Klor-Con 10) 20 meq PO TIDMEALS [facility] Last Admin: 05/21/20 17:08 Dose: 20 meq Documented by: Vancomycin HCl (Vancocin) Confirm Administered Dose 1 gm .ROUTE .STK-MED ONE Stop: 05/19/20 19:51 Last Admin: 05/19/20 22:49 Dose: Not Given Documented by: - Exam General: Alert, Oriented Lungs: Clear to Auscultation, Normal Respiratory Effort Cardiovascular: Regular Rate, Regular Rhythm GI/Abdominal Exam: Soft, No Distention Extremities: No Pedal Edema, Increased Warmth (left foot), Redness (left foot) Skin: Other (cellulitis left foot) Psy/Mental Status: Alert Sepsis Event Note - Evaluation Sepsis Screening Result: No Definite Risk - Focused Exam Vital Signs: Vital Signs Temp Pulse Pulse Resp BP BP Pulse Ox 05/23/20 09:21 78 128/73 05/23/20 07:53 128/73 05/23/20 07:38 99.3 F 70 18 128/73 91 L 05/23/20 04:00 98 F 66 16 133/68 96 05/23/20 00:00 97.5 F 69 16 150/66 H 97 - Problem List Review Problem List Initiated/Reviewed/Updated: Yes - My Orders Last 24 Hours: My Active Orders 05/22/20 11:14 Petrolatum,White [Aquaphor with Natural Healing] See Dose Instructions TOP ASDIRECTED PRN - Plan Plan:: Cellulitis (Left foot): Continue Vancomycin, cefepime azithromycin. MRI showed no signs of osteomyelitis. CKD Stg 3b- GFR 23, Creatinine 2.8, Will monitor and provide fluids as needed. Patients kidney function has improved from the previous day.
[2020-05-23] MEDS: Cyclobenzaprine 10 MG Tab PO SCH (21:54)
[2020-05-23] MEDS: rOPINIRole 0.5 MG Tab PO SCH (21:54)
[2020-05-24 07:21] LABS: CARBON DIOXIDE,CO2 20.7 mmol/L (21.0-32.0); POTASSIUM,K 5.5 mmol/L (3.5-5.1)
[2020-05-24] MEDS: oxyCODONE 5 MG Tab PO PRN ×4 (08:03→22:45)
[2020-05-24] MEDS: Gabapentin 300 MG Cap PO SCH ×2 (08:04→20:55)
[2020-05-24] MEDS: buPROPion 150 MG Tab.ER PO SCH ×2 (08:04→20:56)
[2020-05-24] MEDS: Omeprazole 20 MG Cap.CR PO SCH ×2 (08:05→17:32)
[2020-05-24] MEDS: Metoprolol Succinate 25 MG Tab.ER PO SCH ×2 (08:05→20:56)
[2020-05-24] MEDS: amLODIPine 5 MG Tab PO SCH (08:06)
[2020-05-24] MEDS: Furosemide 20 MG Tab PO SCH (08:09)
[2020-05-24] MEDS: Insulin Aspart 100 Units/ML 3 ML Pen SUBCUT SCH ×3 (08:11→17:36)
[2020-05-24] MEDS: Fluticasone Propionate 44 MCG/Puff 10.6 GM Inhaler INH SCH ×2 (09:52→21:30)
[2020-05-24] MEDS: Azithromycin 250 MG Tab PO SCH (09:54)
[2020-05-24] MEDS: Acetaminophen 325 MG Tab PO PRN (11:27)
[2020-05-24] MEDS: Heparin Sodium 5,000 Units/ML Vial SUBCUT SCH ×2 (11:29→22:42)
[2020-05-24] MEDS: Cefepime 1 GM in Premix Bag 1 BAG IV SCH ×2 (11:29→22:39)
--- NOTE | 2020-05-24 11:44 | US ---
Ankle brachial index Right lower extremity MARK is 1.03 and left lower extremity MARK is 0.95 Impression: 1. Borderline MARK within the left lower extremity and normal MARK within the left lower extremity. Diagnostic code #2 This report was dictated in MDT
[2020-05-24] MEDS: Sodium Chloride 0.9% 1,000 ML IV SCH (14:13)
--- NOTE | 2020-05-24 14:53 | PCM.PN ---
- General Info Date of Service: 05/24/20 Subjective Update: Patient states less foot pain. Patient feels her foot is slightly better than the previous day. Denies fever, chills, nausea. - Review of Systems General: Denies: Fever, Chills Pulmonary: Denies: Shortness of Breath, Pleuritic Chest Pain, Cough Cardiovascular: Denies: Chest Pain, Palpitations Gastrointestinal: Denies: Abdominal Pain, Diarrhea, Nausea Musculoskeletal: Reports: Foot Pain (left) Skin: Reports: Other (swelling left foot) - Patient Data Vitals - Most Recent: Last Vital Signs Temp 97.4 F 05/24/20 12:00 Pulse 67 05/24/20 12:00 Resp 16 05/24/20 12:00 BP 131/66 05/24/20 12:00 Pulse Ox 97 05/24/20 12:00 Weight - Most Recent: 198 lb 11.2 oz I&O - Last 24 Hours: Intake & Output 05/23/20 05/24/20 05/24/20 22:59 06:59 14:59 Intake Total 1858 1696 Output Total 800 2100 Balance 1058 -404 Lab Results Last 24 Hours: Laboratory Results - last 24 hr 05/23/20 05/24/20 05/24/20 Range/Units 16:13 05:57 05:57 WBC 10.08 (4.0-11.0) K/uL RBC 3.29 L (4.30-5.90) M/uL Hgb 9.8 L (12.0-16.0) g/dL Hct 30.6 L (36.0-46.0) % MCV 93.0 (80.0-98.0) fL MCH 29.8 (27.0-32.0) pg MCHC 32.0 (31.0-37.0) g/dL RDW Std Deviation 42.1 (28.0-62.0) fl RDW Coeff of [place]raine 12 (11.0-15.0) % Plt Count 175 (150-400) K/uL MPV 10.00 (7.40-12.00) fL Neut % (Auto) 70.1 (48.0-80.0) % Lymph % (Auto) 16.8 (16.0-40.0) % [place] % (Auto) 7.0 (0.0-15.0) % Eos % (Auto) 5.8 (0.0-7.0) % Baso % (Auto) 0.3 (0.0-1.5) % Neut # (Auto) 7.1 H (1.4-5.7) K/uL Lymph # (Auto) 1.7 (0.6-2.4) K/uL [place] # (Auto) 0.7 (0.0-0.8) K/uL Eos # (Auto) 0.6 (0.0-0.7) K/uL Baso # (Auto) 0.0 (0.0-0.1) K/uL Nucleated RBC % 0.0 /100WBC Nucleated RBCs # 0 K/uL Sodium 139 (136-145) mmol/L Potassium 5.5 H (3.5-5.1) mmol/L Chloride 107 (98-107) mmol/L Carbon Dioxide 20.7 L (21.0-32.0) mmol/L BUN 44 H (7.0-18.0) mg/dL Creatinine 2.8 H (0.6-1.0) mg/dL Est Cr Clr Drug Dosing 23.72 mL/min Estimated GFR (MDRD) 17.5 ml/min Glucose 71 L (74-106) mg/dL POC Glucose 101 (60-110) mg/dL Calcium 8.6 (8.5-10.1) mg/dL 05/24/20 05/24/20 Range/Units 06:33 11:49 WBC (4.0-11.0) K/uL RBC (4.30-5.90) M/uL Hgb (12.0-16.0) g/dL Hct (36.0-46.0) % MCV (80.0-98.0) fL MCH (27.0-32.0) pg MCHC (31.0-37.0) g/dL RDW Std Deviation (28.0-62.0) fl RDW Coeff of [place] (11.0-15.0) % Plt Count (150-400) K/uL MPV (7.40-12.00) fL Neut % (Auto) (48.0-80.0) % Lymph % (Auto) (16.0-40.0) % [place] % (Auto) (0.0-15.0) % Eos % (Auto) (0.0-7.0) % Baso % (Auto) (0.0-1.5) % Neut # (Auto) (1.4-5.7) K/uL Lymph # (Auto) (0.6-2.4) K/uL [place] # (Auto) (0.0-0.8) K/uL Eos # (Auto) (0.0-0.7) K/uL Baso # (Auto) (0.0-0.1) K/uL Nucleated RBC % /100WBC Nucleated RBCs # K/uL Sodium (136-145) mmol/L Potassium (3.5-5.1) mmol/L Chloride (98-107) mmol/L Carbon Dioxide (21.0-32.0) mmol/L BUN (7.0-18.0) mg/dL Creatinine (0.6-1.0) mg/dL Est Cr Clr Drug Dosing mL/min Estimated GFR (MDRD) ml/min Glucose (74-106) mg/dL POC Glucose 60 92 (60-110) mg/dL Calcium (8.5-10.1) mg/dL Med Orders - Current: Current Medications Acetaminophen (Tylenol) 650 mg PO Q4H PRN PRN Reason: Pain (Mild 1-3)/fever Last Admin: 05/24/20 11:27 Dose: 650 mg Documented by: Albuterol (Ventolin Hfa) 0 gm INH ASDIRECTED PRN PRN Reason: Shortness of Breath Amlodipine Besylate (Norvasc) 10 mg PO ACBREAKFAST [facility] Last Admin: 05/24/20 08:06 Dose: 10 mg Documented by: Azithromycin (Zithromax) 250 mg PO Q24H [facility] Last Admin: 05/24/20 09:54 Dose: 250 mg Documented by: Bupropion HCl (Wellbutrin Xl) 150 mg PO BID [facility] Last Admin: 05/24/20 08:04 Dose: 150 mg Documented by: Cyclobenzaprine HCl (Flexeril) 10 mg PO BEDTIME [facility] Last Admin: 05/23/20 21:54 Dose: 10 mg Documented by: Fluticasone Propionate (Flovent Hfa 44 Mcg) 0 gm INH BID [facility] Last Admin: 05/24/20 09:52 Dose: 1 puff Documented by: Furosemide (Lasix) 60 mg PO DAILY [facility] Last Admin: 05/24/20 08:09 Dose: 60 mg Documented by: Gabapentin (Neurontin) 600 mg PO BID [facility] Last Admin: 05/24/20 08:04 Dose: 600 mg Documented by: Heparin Sodium (Porcine) (Heparin Sodium) 5,000 units SUBCUT Q12H [facility] Last Admin: 05/24/20 11:29 Dose: 5,000 units Documented by: Sodium Chloride (Normal Saline) 1,000 mls @ 75 mls/hr IV ASDIRECTED [facility] Last Admin: 05/24/20 14:13 Dose: 75 mls/hr Documented by: Cefepime HCl 1 gm/ Premix 50 mls @ 100 mls/hr IV Q12H [facility] Last Admin: 05/24/20 11:29 Dose: 100 mls/hr Documented by: Vancomycin HCl 1.25 gm/ Sodium (Chloride) 250 mls @ 166.667 mls/hr IV Q24H [facility] Last Admin: 05/23/20 21:51 Dose: 166.667 mls/hr Documented by: Insulin Aspart (Novolog) 0 unit SUBCUT TIDAC [facility]; Protocol Last Admin: 05/24/20 12:03 Dose: Not Given Documented by: Metoprolol Succinate (Toprol Xl) 12.5 mg PO BID [facility] Last Admin: 05/24/20 08:05 Dose: 12.5 mg Documented by[facility] Admin: 05/24/20 08:05 Dose: 40 mg Documented by: Oxycodone HCl (Oxycodone) 5 mg PO Q4H PRN PRN Reason: Pain (moderate 4-6) Last Admin: 05/24/20 12:02 Dose: 5 mg Documented by: Petrolatum (Aquaphor With Natural Healing) 0 gm TOP ASDIRECTED PRN PRN Reason: Dryness Last Admin: 05/23/20 09:18 Dose: 1 applic Documented by: Ropinirole HCl (Requip) 0.5 mg PO BEDTIME [facility] Last Admin: 05/23/20 21:54 Dose: 0.5 mg Documented by: Sodium Chloride (Saline Flush) 10 ml FLUSH ASDIRECTED PRN PRN Reason: Keep Vein Open Last Admin: 05/19/20 16:48 Dose: 10 ml Documented by: Sodium Chloride (Saline Flush) 2.5 ml FLUSH ASDIRECTED PRN PRN Reason: Keep Vein Open Last Admin: 05/19/20 16:48 Dose: 2.5 ml Documented by: Vancomycin HCl (Pharmacy To Dose - Vancomycin) 1 dose .XX ASDIRECTED [facility] Discontinued Medications Azithromycin (Zithromax) 500 mg PO Q24H ONE Stop: 05/21/20 09:20 Last Admin: 05/21/20 10:00 Dose: 500 mg Documented by: Cephalexin (Keflex) 1,000 mg PO ONETIME ONE Stop: 05/19/20 19:35 Last Admin: 05/19/20 20:04 Dose: Not Given Documented by: Piperacillin Sod/Tazobactam (Sod 3.375 gm/ Sodium Chloride) 50 mls @ 100 mls/hr IV ONETIME ONE Stop: 05/19/20 20:12 Last Admin: 05/20/20 02:16 Dose: Not Given Documented by: Vancomycin HCl 1 gm/ Sodium (Chloride) 250 mls @ 166 mls/hr IV ONETIME ONE Stop: 05/19/20 21:13 Last Admin: 05/19/20 20:04 Dose: 166 mls/hr Documented by: Cefepime HCl 2 gm/ Premix 50 mls @ 100 mls/hr IV ONETIME ONE Stop: 05/19/20 20:17 Last Admin: 05/20/20 02:14 Dose: Not Given Documented by: Cefepime HCl 1 gm/ Premix 50 mls @ 100 mls/hr IV Q8H [facility] Vancomycin HCl 1 gm/ Sodium (Chloride) 250 mls @ 166 mls/hr IV ONETIME ONE Stop: 05/20/20 22:30 Last Admin: 05/20/20 20:47 Dose: 166 mls/hr Documented by: Lisinopril (Prinivil) 40 mg PO DAILY [facility] Lisinopril (Prinivil) 40 mg PO DAILY [facility] Last Admin: 05/20/20 20:42 Dose: 40 mg Documented by: Omeprazole (Omeprazole) 40 mg PO BID [facility] Last Admin: 05/20/20 20:45 Dose: 40 mg Documented by: Potassium Chloride (Klor-Con 10) 20 meq PO TIDMEALS [facility] Last Admin: 05/21/20 17:08 Dose: 20 meq Documented by: Potassium Chloride (Klor-Con M20) 20 meq PO TIDMEALS [facility] Last Admin: 05/23/20 17:27 Dose: 20 meq Documented by: Vancomycin HCl (Vancocin) Confirm Administered Dose 1 gm .ROUTE .STK-MED ONE Stop: 05/19/20 19:51 Last Admin: 05/19/20 22:49 Dose: Not Given Documented by: - Exam General: Alert, Oriented Lungs: Clear to Auscultation, Normal Respiratory Effort Cardiovascular: Regular Rate, Regular Rhythm GI/Abdominal Exam: Soft, Non-Tender, No Distention Extremities: No Pedal Edema, Increased Warmth (left foot), Redness (left foot) Sepsis Event Note - Evaluation Sepsis Screening Result: No Definite Risk - Focused Exam Vital Signs: Vital Signs Temp Pulse Pulse Resp BP BP Pulse Ox 05/24/20 12:00 97.4 F 67 16 131/66 97 05/24/20 08:06 183/87 H 05/24/20 08:05 82 183/87 H 05/24/20 08:00 98.1 F 82 16 183/87 H 95 05/24/20 04:14 96.9 F 66 16 121/67 96 - Problem List Review Problem List Initiated/Reviewed/Updated: Yes - My Orders Last 24 Hours: My Active Orders 05/25/20 05:11 BASIC METABOLIC PANEL,BMP [CHEM] AM CBC WITH AUTO DIFF [HEME] AM - Plan Plan:: Cellulitis (Left foot): Patients cellulitis is resolving gradually. Patient was seen by podiatry, who recommended we continue abx treatment. Will follow up with podiatry for recommendations. Continue Vancomycin, cefepime azithromycin. MRI showed no signs of osteomyelitis. CKD Stg 3b- Creatinine 2.8, Will monitor and provide fluids as needed. Patients kidney function has improved from the previous day.
[2020-05-24] MEDS: rOPINIRole 0.5 MG Tab PO SCH (20:56)
[2020-05-24] MEDS: Cyclobenzaprine 10 MG Tab PO SCH (20:56)
[2020-05-25] MEDS: oxyCODONE 5 MG Tab PO PRN ×3 (03:28→11:35)
[2020-05-25] MEDS: Sodium Chloride 0.9% 1,000 ML IV SCH (05:51)
[2020-05-25] MEDS: Omeprazole 20 MG Cap.CR PO SCH (06:32)
[2020-05-25] MEDS: Insulin Aspart 100 Units/ML 3 ML Pen SUBCUT SCH ×2 (06:33→11:57)
[2020-05-25 06:37] LABS: CARBON DIOXIDE,CO2 20.6 mmol/L (21.0-32.0); POTASSIUM,K 4.9 mmol/L (3.5-5.1)
[2020-05-25] MEDS: amLODIPine 5 MG Tab PO SCH (07:55)
[2020-05-25] MEDS: buPROPion 150 MG Tab.ER PO SCH (08:37)
[2020-05-25] MEDS: Gabapentin 300 MG Cap PO SCH (08:38)
[2020-05-25] MEDS: Azithromycin 250 MG Tab PO SCH (08:38)
[2020-05-25] MEDS: Furosemide 20 MG Tab PO SCH (08:38)
[2020-05-25] MEDS: Metoprolol Succinate 25 MG Tab.ER PO SCH (08:39)
[2020-05-25] MEDS: Fluticasone Propionate 44 MCG/Puff 10.6 GM Inhaler INH SCH (09:24)
[2020-05-25] MEDS: Heparin Sodium 5,000 Units/ML Vial SUBCUT SCH (11:35)
[2020-05-25] MEDS: Cefepime 1 GM in Premix Bag 1 BAG IV SCH (11:37)
[2020-05-25 11:46] VITALS: BP 139/73; PULSE 61
--- NOTE | 2020-05-25 19:01 | PCM.DCSUM1 ---
<Zac Varela - Last Filed: 05/25/20 19:02> Discharge Summary - Hospital Course Free Text/Narrative:: 54 yo female admitted for left foot cellulitis. Patient has a pmh of DM (has not required insulin due to significant weight loss post weight loss surgery), HTN, diabetic nephropathy, right big toe amputation. Patient presented to the ED with erythema, swelling and pain of the left foot. Patient did have an ultrasound of leg which was negative for DVT on admission. Patient also had an foot MRI which showed no signs of osteomyelitis. Patient did have multiple scratches on both lower extremities which she attributed to multiple cat scratches. Patient was treated with IV antibiotics (Vancomycin, cefepime azithromycin). Patient was seen by podiatry prior to discharge who recommended we continue abx treatment. Patients cellulitis was improved on discharge and patient was discharged with 5 days of doxycycline and asked to follow up with podiatry. - Discharge Data Discharge Date: 05/25/20 Discharge Disposition: Home, Self-Care 01 Condition: Good - Referral to Home Health Primary Care Physician: Dominique Butts NP - Patient Summary/Data Consults: Consultations 05/23/20 09:51 Consult to Wound Care Services [CONS] Routine - Discharge Plan *PRESCRIPTION DRUG MONITORING PROGRAM REVIEWED*: Not Applicable *COPY OF PRESCRIPTION DRUG MONITORING REPORT IN PATIENT ANN-MARIE: Not Applicable Prescriptions/Med Rec: Doxycycline Monohydrate 100 mg PO BID 5 Days #10 capsule Home Medications: Home Meds Albuterol [Ventolin HFA] 1 - 2 puff INH ASDIRECTED PRN 10/02/15 [History] Cyclobenzaprine [Flexeril] 1 tab PO BEDTIME 10/02/15 [History] Furosemide 60 mg PO DAILY 10/02/15 [History] Gabapentin [Neurontin] 600 mg PO BID 10/02/15 [History] Lisinopril 40 mg PO DAILY 10/02/15 [History] Omeprazole [Prilosec] 40 mg PO BID 10/02/15 [History] Potassium Chloride 2 tab PO TID 10/02/15 [History] amLODIPine Besylate [Amlodipine Besylate] 10 mg PO ACBREAKFAST 10/02/15 [History] buPROPion HCL [Wellbutrin Xl] 1 tab PO BID 10/02/15 [History] rOPINIRole HCl [Requip] 0.5 mg PO BEDTIME 10/02/15 [History] traMADol HCl [Tramadol HCl] 2 tab PO Q8H PRN 10/02/15 [History] Cholecalciferol (Vitamin D3) [Vitamin D3] 50,000 unit PO ASDIRECTED 05/06/17 [History] Fluticasone Propionate [Flovent Hfa] 1 puff INH BID 05/06/17 [History] Metoprolol Succinate 12.5 mg PO BID 05/06/17 [History] atorvaSTATin Calcium [Atorvastatin Calcium] 20 mg PO DAILY 05/06/17 [History] Doxycycline Monohydrate 100 mg PO BID 5 Days #10 capsule 05/25/20 [Rx] Patient Handouts: Diabetes Mellitus and Foot Care, Acetaminophen; Oxycodone capsules, Doxycycline tablets or capsules, Cellulitis, Adult, [id number] Referrals: Dominique Butts NP [Primary Care Provider] - 06/11/20 1:00 pm (Please arrive 15 minutes early with your identification, insurance cards, and your own facemask.) Parrish Xie DPM [Physician] - 06/07/20 4:00 pm - Discharge Summary/Plan Comment DC Time >30 min.: No - General Info Date of Service: 05/25/20 Subjective Update: Patient states that she is ready to go home. She still states that she has foot pain but it is improved form admission. Patient feels that her foot cellulitis has improved. Denies, fever and chills - Review of Systems General: Denies: Fever, Fatigue, Chills Pulmonary: Denies: Shortness of Breath, Pleuritic Chest Pain, Cough Cardiovascular: Denies: Chest Pain, Palpitations, Dyspnea on Exertion Gastrointestinal: Denies: Abdominal Pain, Diarrhea, Nausea Musculoskeletal: Reports: Foot Pain (mild left foot pain. Patient states she is able to bear weigh on the foot. ) Neurological: Denies: Dizziness, Headache - Patient Data Vitals - Most Recent: Last Vital Signs Temp 97.2 F 05/25/20 11:45 Pulse 61 05/25/20 11:45 Resp 16 05/25/20 11:45 BP 139/73 05/25/20 11:45 Pulse Ox 98 05/25/20 11:45 Weight - Most Recent: 90.129 kg I&O - Last 24 hours: Intake & Output 05/25/20 05/25/20 05/25/20 06:59 14:59 22:59 Intake Total 590 1325 Output Total 2800 2300 Balance -2210 -975 Lab Results - Last 24 hrs: Laboratory Results - last 24 hr 05/24/20 05/24/20 05/25/20 Range/Units 17:15 20:34 05:21 WBC 8.99 (4.0-11.0) K/uL RBC 3.02 L (4.30-5.90) M/uL Hgb 9.0 L (12.0-16.0) g/dL Hct 27.6 L (36.0-46.0) % MCV 91.4 (80.0-98.0) fL MCH 29.8 (27.0-32.0) pg MCHC 32.6 (31.0-37.0) g/dL RDW Std Deviation 42.0 (28.0-62.0) fl RDW Coeff of Lorraine 12 (11.0-15.0) % Plt Count 144 L (150-400) K/uL MPV 9.60 (7.40-12.00) fL Neut % (Auto) 68.3 (48.0-80.0) % Lymph % (Auto) 18.7 (16.0-40.0) % Stanly % (Auto) 6.8 (0.0-15.0) % Eos % (Auto) 5.8 (0.0-7.0) % Baso % (Auto) 0.4 (0.0-1.5) % Neut # (Auto) 6.1 H (1.4-5.7) K/uL Lymph # (Auto) 1.7 (0.6-2.4) K/uL Stanly # (Auto) 0.6 (0.0-0.8) K/uL Eos # (Auto) 0.5 (0.0-0.7) K/uL Baso # (Auto) 0.0 (0.0-0.1) K/uL Nucleated RBC % 0.0 /100WBC Nucleated RBCs # 0 K/uL Sodium (136-145) mmol/L Potassium (3.5-5.1) mmol/L Chloride (98-107) mmol/L Carbon Dioxide (21.0-32.0) mmol/L BUN (7.0-18.0) mg/dL Creatinine (0.6-1.0) mg/dL Est Cr Clr Drug Dosing mL/min Estimated GFR (MDRD) ml/min Glucose (74-106) mg/dL POC Glucose 75 (60-110) mg/dL Calcium (8.5-10.1) mg/dL Vancomycin Trough 35.2 H (5.0-10.0) ug/mL 05/25/20 05/25/20 05/25/20 Range/Units 05:21 06:07 11:42 WBC (4.0-11.0) K/uL RBC (4.30-5.90) M/uL Hgb (12.0-16.0) g/dL Hct (36.0-46.0) % MCV (80.0-98.0) fL MCH (27.0-32.0) pg MCHC (31.0-37.0) g/dL RDW Std Deviation (28.0-62.0) fl RDW Coeff of Lorraine (11.0-15.0) % Plt Count (150-400) K/uL MPV (7.40-12.00) fL Neut % (Auto) (48.0-80.0) % Lymph % (Auto) (16.0-40.0) % Stanly % (Auto) (0.0-15.0) % Eos % (Auto) (0.0-7.0) % Baso % (Auto) (0.0-1.5) % Neut # (Auto) (1.4-5.7) K/uL Lymph # (Auto) (0.6-2.4) K/uL Stanly # (Auto) (0.0-0.8) K/uL Eos # (Auto) (0.0-0.7) K/uL Baso # (Auto) (0.0-0.1) K/uL Nucleated RBC % /100WBC Nucleated RBCs # K/uL Sodium 139 (136-145) mmol/L Potassium 4.9 (3.5-5.1) mmol/L Chloride 108 H (98-107) mmol/L Carbon Dioxide 20.6 L (21.0-32.0) mmol/L BUN 41 H (7.0-18.0) mg/dL Creatinine 2.7 H (0.6-1.0) mg/dL Est Cr Clr Drug Dosing 24.60 mL/min Estimated GFR (MDRD) 18.3 ml/min Glucose 65 L (74-106) mg/dL POC Glucose 64 90 (60-110) mg/dL Calcium 8.2 L (8.5-10.1) mg/dL Vancomycin Trough (5.0-10.0) ug/mL Med Orders - Current: Current Medications Discontinued Medications Acetaminophen (Tylenol) 650 mg PO Q4H PRN PRN Reason: Pain (Mild 1-3)/fever Last Admin: 05/24/20 11:27 Dose: 650 mg Documented by: Albuterol (Ventolin Hfa) 0 gm INH ASDIRECTED PRN PRN Reason: Shortness of Breath Amlodipine Besylate (Norvasc) 10 mg PO ACBREAKFAST [facility] [place] Last Admin: 05/25/20 07:55 Dose: 10 mg Documented by: Azithromycin (Zithromax) 500 mg PO Q24H ONE Stop: 05/21/20 09:20 Last Admin: 05/21/20 10:00 Dose: 500 mg Documented by: Azithromycin (Zithromax) 250 mg PO Q24H [facility] [place] Last Admin: 05/25/20 08:38 Dose: 250 mg Documented by: Bupropion HCl (Wellbutrin Xl) 150 mg PO BID [facility] [place] Last Admin: 05/25/20 08:37 Dose: 150 mg Documented by: Cephalexin (Keflex) 1,000 mg PO ONETIME ONE Stop: 05/19/20 19:35 Last Admin: 05/19/20 20:04 Dose: Not Given Documented by: Cyclobenzaprine HCl (Flexeril) 10 mg PO BEDTIME [facility] [place] Last Admin: 05/24/20 20:56 Dose: 10 mg Documented by: Fluticasone Propionate (Flovent Hfa 44 Mcg) 0 gm INH BID [facility] [place] Last Admin: 05/25/20 09:24 Dose: 1 puff Documented by: Furosemide (Lasix) 60 mg PO DAILY [facility] [place] Last Admin: 05/25/20 08:38 Dose: 60 mg Documented by: Gabapentin (Neurontin) 600 mg PO BID [facility] [place] Last Admin: 05/25/20 08:38 Dose: 600 mg Documented by: Heparin Sodium (Porcine) (Heparin Sodium) 5,000 units SUBCUT Q12H [facility] [place] Last Admin: 05/25/20 11:35 Dose: 5,000 units Documented by: Piperacillin Sod/Tazobactam (Sod 3.375 gm/ Sodium Chloride) 50 mls @ 100 mls/hr IV ONETIME ONE Stop: 05/19/20 20:12 Last Admin: 05/20/20 02:16 Dose: Not Given Documented by: Vancomycin HCl 1 gm/ Sodium (Chloride) 250 mls @ 166 mls/hr IV ONETIME ONE Stop: 05/19/20 21:13 Last Admin: 05/19/20 20:04 Dose: 166 mls/hr Documented by: Cefepime HCl 2 gm/ Premix 50 mls @ 100 mls/hr IV ONETIME ONE Stop: 05/19/20 20:17 Last Admin: 05/20/20 02:14 Dose: Not Given Documented by: Cefepime HCl 1 gm/ Premix 50 mls @ 100 mls/hr IV Q8H [facility] [place] Sodium Chloride (Normal Saline) 1,000 mls @ 75 mls/hr IV ASDIRECTED [facility] [place] Last Admin: 05/25/20 05:51 Dose: 75 mls/hr Documented by: Cefepime HCl 1 gm/ Premix 50 mls @ 100 mls/hr IV Q12H [facility] [place] Last Admin: 05/25/20 11:37 Dose: 100 mls/hr Documented by: Vancomycin HCl 1 gm/ Sodium (Chloride) 250 mls @ 166 mls/hr IV ONETIME ONE Stop: 05/20/20 22:30 Last Admin: 05/20/20 20:47 Dose: 166 mls/hr Documented by: Vancomycin HCl 1.25 gm/ Sodium (Chloride) 250 mls @ 166.667 mls/hr IV Q24H [facility] [place] Last Admin: 05/24/20 22:42 Dose: Not Given Documented by: Insulin Aspart (Novolog) 0 unit SUBCUT TIDAC [facility] [place]; Protocol Last Admin: 05/25/20 11:57 Dose: Not Given Documented by: Lisinopril (Prinivil) 40 mg PO DAILY [facility] [place] Lisinopril (Prinivil) 40 mg PO DAILY [facility] [place] Last Admin: 05/20/20 20:42 Dose: 40 mg Documented by: Metoprolol Succinate (Toprol Xl) 12.5 mg PO BID [facility] [place] Last Admin: 05/25/20 08:39 Dose: 12.5 mg Documented by: Omeprazole (Omeprazole) 40 mg PO BID [facility] [place] Last Admin: 05/20/20 20:45 Dose: 40 mg Documented by: Omeprazole (Omeprazole) 40 mg PO BIDAC [facility] [place] Last Admin: 05/25/20 06:32 Dose: 40 mg Documented by: Oxycodone HCl (Oxycodone) 5 mg PO Q4H PRN PRN Reason: Pain (moderate 4-6) Last Admin: 05/25/20 11:35 Dose: 5 mg Documented by: Petrolatum (Aquaphor With Natural Healing) 0 gm TOP ASDIRECTED PRN PRN Reason: Dryness Last Admin: 05/23/20 09:18 Dose: 1 applic Documented by: Potassium Chloride (Klor-Con 10) 20 meq PO TIDMEALS [facility] [place] Last Admin: 05/21/20 17:08 Dose: 20 meq Documented by: Potassium Chloride (Klor-Con M20) 20 meq PO TIDMEALS [facility] [place] Last Admin: 05/23/20 17:27 Dose: 20 meq Documented by: Ropinirole HCl (Requip) 0.5 mg PO BEDTIME [facility] [place] Last Admin: 05/24/20 20:56 Dose: 0.5 mg Documented by: Sodium Chloride (Saline Flush) 10 ml FLUSH ASDIRECTED PRN PRN Reason: Keep Vein Open Last Admin: 05/19/20 16:48 Dose: 10 ml Documented by: Sodium Chloride (Saline Flush) 2.5 ml FLUSH ASDIRECTED PRN PRN Reason: Keep Vein Open Last Admin: 05/19/20 16:48 Dose: 2.5 ml Documented by: Vancomycin HCl (Vancocin) Confirm Administered Dose 1 gm .ROUTE .ST-MED ONE Stop: 05/19/20 19:51 Last Admin: 05/19/20 22:49 Dose: Not Given Documented by: Vancomycin HCl (Pharmacy To Dose - Vancomycin) 1 dose .XX ASDIRECTED [facility] [place] - Exam General: Reports: Alert, Oriented Lungs: Reports: Clear to Auscultation, Normal Respiratory Effort Cardiovascular: Reports: Regular Rate, Regular Rhythm GI/Abdominal Exam: Soft, Non-Tender, No Distention Extremities: No Pedal Edema, Other (mild foot pain with palpation. No pain with dorsiflexion, plantar flexion, inversion, eversion of the foot at the ankle. ) <StuartToinba - Last Filed: 05/26/20 13:42> Discharge Summary - Hospital Course Free Text/Narrative:: I have seen and evaluated the patient and agree with the residents note unless specified in my note - Referral to Home Health Primary Care Physician: Dominique Butts NP - Patient Summary/Data Consults: Consultations 05/23/20 09:51 Consult to Wound Care Services [CONS] Routine - Patient Data Vitals - Most Recent: Last Vital Signs Temp 36.2 C 05/25/20 11:45 Pulse 61 05/25/20 11:45 Resp 16 05/25/20 11:45 BP 139/73 05/25/20 11:45 Pulse Ox 98 05/25/20 11:45 Med Orders - Current: Current Medications Discontinued Medications Acetaminophen (Tylenol) 650 mg PO Q4H PRN PRN Reason: Pain (Mild 1-3)/fever Last Admin: 05/24/20 11:27 Dose: 650 mg Documented by: Albuterol (Ventolin Hfa) 0 gm INH ASDIRECTED PRN PRN Reason: Shortness of Breath Amlodipine Besylate (Norvasc) 10 mg PO ACBREAKFAST [facility] [place] Last Admin: 05/25/20 07:55 Dose: 10 mg Documented by: Azithromycin (Zithromax) 500 mg PO Q24H ONE Stop: 05/21/20 09:20 Last Admin: 05/21/20 10:00 Dose: 500 mg Documented by: Azithromycin (Zithromax) 250 mg PO Q24H [facility] [place] Last Admin: 05/25/20 08:38 Dose: 250 mg Documented by: Bupropion HCl (Wellbutrin Xl) 150 mg PO BID [facility] [place] Last Admin: 05/25/20 08:37 Dose: 150 mg Documented by: Cephalexin (Keflex) 1,000 mg PO ONETIME ONE Stop: 05/19/20 19:35 Last Admin: 05/19/20 20:04 Dose: Not Given Documented by: Cyclobenzaprine HCl (Flexeril) 10 mg PO BEDTIME [facility] [place] Last Admin: 05/24/20 20:56 Dose: 10 mg Documented by: Fluticasone Propionate (Flovent Hfa 44 Mcg) 0 gm INH BID [facility] [place] Last Admin: 09/18/20 09:24 Dose: 1 puff Documented by: Furosemide (Lasix) 60 mg PO DAILY [facility] [place] Last Admin: 05/25/20 08:38 Dose: 60 mg Documented by: Gabapentin (Neurontin) 600 mg PO BID [facility] [place] Last Admin: 05/25/20 08:38 Dose: 600 mg Documented by: Heparin Sodium (Porcine) (Heparin Sodium) 5,000 units SUBCUT Q12H [facility] [place] Last Admin: 05/25/20 11:35 Dose: 5,000 units Documented by: Piperacillin Sod/Tazobactam (Sod 3.375 gm/ Sodium Chloride) 50 mls @ 100 mls/hr IV ONETIME ONE Stop: 05/19/20 20:12 Last Admin: 05/20/20 02:16 Dose: Not Given Documented by: Vancomycin HCl 1 gm/ Sodium (Chloride) 250 mls @ 166 mls/hr IV ONETIME ONE Stop: 05/19/20 21:13 Last Admin: 05/19/20 20:04 Dose: 166 mls/hr Documented by: Cefepime HCl 2 gm/ Premix 50 mls @ 100 mls/hr IV ONETIME ONE Stop: 05/19/20 20:17 Last Admin: 05/20/20 02:14 Dose: Not Given Documented by: Cefepime HCl 1 gm/ Premix 50 mls @ 100 mls/hr IV Q8H [facility] [place] Sodium Chloride (Normal Saline) 1,000 mls @ 75 mls/hr IV ASDIRECTED [facility] [place] Last Admin: 05/25/20 05:51 Dose: 75 mls/hr Documented by: Cefepime HCl 1 gm/ Premix 50 mls @ 100 mls/hr IV Q12H [facility] [place] Last Admin: 05/25/20 11:37 Dose: 100 mls/hr Documented by: Vancomycin HCl 1 gm/ Sodium (Chloride) 250 mls @ 166 mls/hr IV ONETIME ONE Stop: 05/20/20 22:30 Last Admin: 05/20/20 20:47 Dose: 166 mls/hr Documented by: Vancomycin HCl 1.25 gm/ Sodium (Chloride) 250 mls @ 166.667 mls/hr IV Q24H [facility] [place] Last Admin: 05/24/20 22:42 Dose: Not Given Documented by: Insulin Aspart (Novolog) 0 unit SUBCUT TIDAC [facility] [place]; Protocol Last Admin: 05/25/20 11:57 Dose: Not Given Documented by: Lisinopril (Prinivil) 40 mg PO DAILY [facility] [place] Lisinopril (Prinivil) 40 mg PO DAILY [facility] [place] Last Admin: 05/20/20 20:42 Dose: 40 mg Documented by: Metoprolol Succinate (Toprol Xl) 12.5 mg PO BID [facility] [place] Last Admin: 05/25/20 08:39 Dose: 12.5 mg Documented by: Omeprazole (Omeprazole) 40 mg PO BID [facility] [place] Last Admin: 05/20/20 20:45 Dose: 40 mg Documented by: Omeprazole (Omeprazole) 40 mg PO BIDAC [facility] [place] Last Admin: 05/25/20 06:32 Dose: 40 mg Documented by: Oxycodone HCl (Oxycodone) 5 mg PO Q4H PRN PRN Reason: Pain (moderate 4-6) Last Admin: 05/25/20 11:35 Dose: 5 mg Documented by: Petrolatum (Aquaphor With Natural Healing) 0 gm TOP ASDIRECTED PRN PRN Reason: Dryness Last Admin: 05/23/20 09:18 Dose: 1 applic Documented by: Potassium Chloride (Klor-Con 10) 20 meq PO TIDMEALS [facility] [place] Last Admin: 05/21/20 17:08 Dose: 20 meq Documented by: Potassium Chloride (Klor-Con M20) 20 meq PO TIDMEALS [facility] [place] Last Admin: 05/23/20 17:27 Dose: 20 meq Documented by: Ropinirole HCl (Requip) 0.5 mg PO BEDTIME [facility] [place] Last Admin: 05/24/20 20:56 Dose: 0.5 mg Documented by: Sodium Chloride (Saline Flush) 10 ml FLUSH ASDIRECTED PRN PRN Reason: Keep Vein Open Last Admin: 05/19/20 16:48 Dose: 10 ml Documented by: Sodium Chloride (Saline Flush) 2.5 ml FLUSH ASDIRECTED PRN PRN Reason: Keep Vein Open Last Admin: 05/19/20 16:48 Dose: 2.5 ml Documented by: Vancomycin HCl (Vancocin) Confirm Administered Dose 1 gm .ROUTE .STK-MED ONE Stop: 05/19/20 19:51 Last Admin: 05/19/20 22:49 Dose: Not Given Documented by: Vancomycin HCl (Pharmacy To Dose - Vancomycin) 1 dose .XX ASDIRECTED [facility] [place]
== END 2020-05-25 12:35 | disposition home or self-care (01) | DRG 638 ==
LOC: MW.ED 16:16 → MW.MS 19:56
PROVIDERS: ADMIT Internal Medicine; ATTEND Internal Medicine
DX: E11.628 Type 2 diabetes mellitus with other skin complications (principal); L03.116 Cellulitis of left lower limb; I13.0 Hypertensive heart and chronic kidney disease with heart failure and stage 1 through stage 4 chronic kidney disease, or unspecified chronic kidney disease; N17.9 Acute kidney failure, unspecified; H54.7 Unspecified visual loss; I11.0 Hypertensive heart disease with heart failure; I50.9 Heart failure, unspecified; E78.00 Pure hypercholesterolemia, unspecified; J44.9 Chronic obstructive pulmonary disease, unspecified; K21.9 Gastro-esophageal reflux disease without esophagitis; N28.9 Disorder of kidney and ureter, unspecified; M19.90 Unspecified osteoarthritis, unspecified site; E11.22 Type 2 diabetes mellitus with diabetic chronic kidney disease; N18.3 Chronic kidney disease, stage 3 (moderate); G89.29 Other chronic pain; M54.9 Dorsalgia, unspecified; Z87.891 Personal history of nicotine dependence; M79.7 Fibromyalgia; E11.42 Type 2 diabetes mellitus with diabetic polyneuropathy; F32.9 Major depressive disorder, single episode, unspecified; G25.81 Restless legs syndrome; E66.9 Obesity, unspecified; Z89.411 Acquired absence of right great toe; Z98.890 Other specified postprocedural states; F17.210 Nicotine dependence, cigarettes, uncomplicated; Z88.0 Allergy status to penicillin; Z79.899 Other long term (current) drug therapy; Z20.828 Contact with and (suspected) exposure to other viral communicable diseases
CPT/HCPCS: 36415; 51798; 73630-26-LT; 73630-LT; 73700-26-LT; 73700-LT; 73718-26-LT; 73718-LT; 80048; 80053; 80202; 81001; 82570; 82962; 83036; 83880; 85025; 85610; 85652; 86140; 93922; 93922-26; 93971-26-LT; 93971-LT; 94640; 99284; 99285-25; A9270-GY; J0692; J1644; J1815-GY; J3370; J7030; J7050; U0002